=== PATIENT | female | born 1940 | race Caucasian/White ===

== ENCOUNTER 2021-12-12 22:08 | Inpatient (IN) | payer MEDICARE, MEDICAID, SELFPAY ==
--- NOTE | ~2021-12-12 | XR_ITS ---
MODIFIED ESOPHAGRAM HISTORY: Dysphagia. TECHNIQUE: Modified barium esophagram was performed on 12/16/2021. I administered fluoroscopy and perf ormed the exam with speech pathologist. Patient was seated for lateral fluoroscopic imaging for kristine stion of thin liquids, pudding, solids and quantified amounts, followed by thin liquids in uncontroll ed amounts. This was recorded on tape. A single fluoroscopic spot image was also recorded. The DAP fo r this procedure was 1.397 Gycm2. The amount of fluoroscopy time used during this procedure was 2.1 m inutes. FINDINGS: Oral stage: Adequate function. Pharyngeal stage: Trace vallecular residue and trace laryngeal penetration without aspiration.. Cervical/esophageal stage: Adequate function. IMPRESSION: Laryngeal penetration without aspiration. Please correlate with speech pathologist findi ngs and specific feeding recommendations. Reviewed, dictated and finalized at location A. IMPRESSION: Laryngeal penetration without aspiration. Please correlate with sp eech pathologist findings and specific feeding recommendations.
--- NOTE | ~2021-12-12 | XR_ITS ---
XR chest 1V portable 12/15/2021 14:55 Indication: Right middle lobe collapse Procedure: AP portable chest Comparison: 12/13/2021 Findings: There is opacification of the right mid thorax, possibly loculated effusion. Heart size nor mal. There is focal right perihilar consolidation which may represent atelectasis or pneumonia. No ac haley osseous abnormality. 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 Impression: 1: Focal right perihilar consolidation may represent atelectasis or pneumonia. 2: Peripheral opacity along the fissure on the right, suspicious for loculated effusion. Reviewed, dictated and finalized at location A. Impression: 1: Focal right perihilar consolidation may represent atelectasis or pneumonia. 2: Peripheral opacity along the fissure on the right, suspicious for loculated effusion.
--- NOTE | ~2021-12-12 | XR_ITS ---
EXAMINATION: XR chest 1V portable Exam Date/Time: 12/18/2021 14:30 CDT HISTORY: BRONCH S/P PROCEDURE Comparison: 12/17/2021. RESULT: Lines, tubes, and devices: None. Lungs and pleura: Slightly increased right middle lobe and bibasilar atelectasis. Cardiomediastinal silhouette: Stable. Other: No acute osseous or upper abdominal finding. IMPRESSION: Slightly increased right middle lobe and bibasilar atelectasis. No pneumothorax. Reviewed, dictated and finalized at location K. IMPRESSION: Slightly increased right middle lobe and bibasilar atelectasis. No pneumothorax .
--- NOTE | ~2021-12-12 | XR_ITS ---
EXAMINATION: XR chest 2V DATE: 12/17/2021 10:15 INDICATION: Right middle lobe collapse TECHNIQUE: frontal and lateral views of the chest were obtained. COMPARISON: 12/06 01/[address] dated 12/11/2021 FINDINGS: Persistent consolidation of the right middle lobe with appearance on prior CT most consistent with co mbination of atelectasis and pneumonia. Small bilateral pleural effusions at the posterior sulci. Rem ainder of the lungs are clear. No pulmonary edema or pneumothorax. The cardiomediastinal silhouette i s normal. Residual oral contrast material in the colon from prior modified swallow study. IMPRESSION: 1. Persistent right middle lobe consolidation, likely combination of atelectasis and pneumonia based on earlier CT imaging. Reviewed, dictated and finalized at location A. IMPRESSION: 1. Persistent right middle lobe consolidation, likely combination of atelectasi s and pneumonia based on earlier CT imaging.
--- NOTE | ~2021-12-12 | XR_ITS ---
EXAMINATION: XR chest 1V portable DATE: 12/13/2021 08:59 INDICATION: Aspiration pneumonia TECHNIQUE: frontal view of the chest was obtained. COMPARISON: None FINDINGS: Focal triangular airspace opacity in the right mid to lower lung zone with configuration suggesting c onsolidation either atelectasis or pneumonia in the lateral right middle lobe with sharply defined ce phalad margin along the minor fissure. No other airspace opacities, pulmonary edema, pleural effusion or pneumothorax. The cardiomediastinal silhouette is normal. Moderate to severe osteoarthritis at th e bilateral glenohumeral joints. IMPRESSION: 1. Focal consolidation in the lateral right middle lobe which could represent atelectasis or pneumoni a. Reviewed, dictated and finalized at location A. IMPRESSION: 1. Focal consolidation in the lateral right middle lobe which could represent a telectasis or pneumonia.
--- NOTE | ~2021-12-12 | CT_ITS ---
EXAMINATION: CT diagnostic chest wo con DATE: 12/17/2021 19:01 INDICATION: right middle lobe collapse TECHNIQUE: Computed tomography (CT) of the chest was performed with 100 mL Omnipaque-350 intravenous contrast. Automated exposure control and iterative reconstruction technique were employed. The dose-l ength product was 143.84 mGy-cm. COMPARISON: X-ray chest 12/17/2021, outside CT 12/11/2021. FINDINGS: CHEST: Thoracic aorta: Mild ectasia and arch calcification. Lung parenchyma and airways: Persistent atelectasis/consolidation in the right middle lobe. Interval development of air bronchograms. Severe narrowing of the proximal right middle lobe bronchus near its origin. Thoracic inlet, axillae and chest wall: No thyroid or soft tissue mass. No axillary lymphadenopathy. Mediastinum: No mass or lymphadenopathy. Scattered subcentimeter right hilar and mediastinal nodes. P ulmonary artery dilation as can be seen with pulmonary arterial hypertension. Patulous esophagus. Heart and pericardium: Normal heart size. No pericardial effusion. Mitral and aortic valve calcificat ion. Coronary artery calcifications: Moderate. Pleura: Small bilateral fluid collections with dependent atelectasis. Upper abdomen: Cholelithiasis Thoracic bones: No acute osseous finding in the chest. IMPRESSION: Persistent right middle lobe consolidation/atelectasis, with similar to slightly decreased volume and interval development of air bronchograms throughout. Right middle lobe bronchus narrowing near its o rigin. Small bilateral effusions. Overall these findings may reflect resolving right middle lobe pneu monia, although a small obstructing hilar mass or endobronchial mass is not excluded by this examinat ion. Reviewed, dictated and finalized at location K. IMPRESSION: Persistent right middle lobe consolidation/atelectasis, with similar to slightl y decreased volume and interval development of air bronchograms throughout. Rig ht middle lobe bronchus narrowing near its origin. Small bilateral effusions. O verall these findings may reflect resolving right middle lobe pneumonia, althou gh a small obstructing hilar mass or endobronchial mass is not excluded by this examination.
--- NOTE | 2021-12-12 20:05 | ADMGEN ---
This patient, Marlee Rocha, was admitted to Medical Room 340-01. Patient/family oriented to hospital policies and general routines including ID bracelet, bed and alarms, visiting hours, pain management, procedures, bathroom and other care routines, personal items, smoking policy, room service/diet, and visiting hours. Information on how to activate the Rapid Response Team has been discussed. Patient/Family are encouraged to report perceived risks to care and to ask questions if they do not understand what they are told or what they should do.
[2021-12-12 20:46] VITALS: BMI 23.8
[2021-12-12 20:50] VITALS: BP 130/68; PULSE 62; RESP 22; TEMP 36.8; O2SAT 95
[2021-12-12 23:06] LABS: Basophils Percent Auto 0.2 % (0.2-1.2); Eosinophils Percent Auto 0.2 % (0-4.4); Hematocrit 38.6 % (37.0-47.0); Hemoglobin 12.2 g/dL (12.0-15.0); Immature Granulocyte Absolute 0.13 K/mm3 (0.00-0.031); Immature Granulocyte Percent A 1.4 % (0-0.5); Lymphocytes Absolute Auto 0.94 K/mm3 (0.9-3.2); Lymphocytes Percent Auto 10.5 % (18.3-44.2); Mean Corpuscular HGB Conc 31.6 g/dl (32-36); Mean Corpuscular Hemoglobin 30.7 pg (26-34); Mean Platelet Volume 8.8 fl (7.4-10.4); Monocytes Absolute Auto 0.4 K/mm3 (0.1-0.6); Monocytes Percent Auto 4.6 % (2.6-8.5); Neutrophils Absolute Auto 7.5 K/mm3 (1.3-6.7); Neutrophils Percent Auto 83.1 % (45.5-73.1); Platelet Count Result 335 k/mm3 (150-375); Red Blood Count 3.98 M/mm3 (4.2-5.4); Red Cell Distribution Width 14.7 % (11.5-14.5)
[2021-12-12 23:13] LABS: Alanine Aminotransferase 16 U/L (6-35); Albumin Level 2.8 g/dL (3.5-5.1); Alkaline Phosphatase 102 U/L (38-126); Anion Gap 11 mmol/L (8-16); Aspartate Amino Transferase 37 U/L (14-36); Bilirubin,Total 0.4 mg/dL (0.2-1.3); Blood Urea Nitrogen 18 mg/dL (7-17); Calcium 8.8 mg/dL (8.4-10.2); Carbon Dioxide 23 mmol/L (22-30); Chloride 107 mmol/L (98-107); Estimated CRCL calculation 54 ml/min; Estimated Glomerular Filt Rate > 60; Glucose 94 mg/dL (65-110); Magnesium 1.5 mg/dL (1.6-2.3); Phosphorus 2.7 mg/dL (2.5-4.5); Sodium 141 mmol/L (137-145)
[2021-12-12] MEDS: DEXTROSE 5%/0.45% SOD CHL 1,000 ML 75 ML IV CONT (23:40)
[2021-12-13] VITALS (7 sets, daily range): BP systolic 126–131; BP diastolic 68–80; PULSE 62–85; RESP 18–22; TEMP 36.4–36.8; O2SAT 95–100; BMI 23.8
--- NOTE | 2021-12-13 00:35 | PM.IMHP ---
H&P: HPI History of Present Illness Date/Time: 12/13/21 00:35 Chief Complaint: dysphagia Narrative: This is an 81-year-old female with past medical history significant for gastroesophageal reflux disease, type 2 diabetes mellitus, patient comes as a direct transfer from outside hospital after she was checked in the for shortness of breath patient has dysphagia as well and has not been able to eat for several days has had weight loss as well. Patient denies any fevers, chills, rigors, has have some shortness of breath, cough nonproductive, no hematemesis no melena no bright red blood per rectum on no changes in her stool character. PRELIMINARY WORKUP WAS SIGNIFICANT FOR CHEST X-RAY with focal consolidation in the lateral right middle lobe which could represent atelectasis or pneumonia. Patient is been admitted for further evaluation management and treatment. Review of Systems Review of Systems: DYSPHAGIA, UNABLE TO KEEP ANYTHING DOWN REGURGITATION, WEIGHT LOSS, SHORTNESS OF BREATH, COUGH. Constitutional: Constitutional: Denies chills, Denies fever(s), Denies night sweats and Reports weight loss Eyes: Eyes: Denies change in vision ENT: Reports dysphagia, Denies vertigo, Denies dizziness, Denies odynophagia and Denies sore throat Cardiovascular: Cardiovascular: Denies chest pain, Denies syncope, Denies irregular heart rhythm, Denies lightheadedness, Denies palpitations and Denies dyspnea on exertion Respiratory: Respiratory: Denies change in phlegm color, Denies chest congestion, Reports cough, Denies excessive phlegm production, Reports dyspnea and Denies wheezing Gastrointestinal: Gastrointestinal: Denies abdominal pain, Denies dyspepsia, Denies heartburn, Denies nausea and Denies vomiting Genitourinary: Genitourinary: Denies dysuria Musculoskeletal: Musculoskeletal: Denies myalgias, Denies arthralgias and Denies joint swelling Integumentary/Breasts: Skin/Breast: Denies rash Neurologic: Denies vertigo, Denies dizziness, Denies focal weakness and Denies Sensory deficit (Neuro) Psychiatric: Psychiatric: Reports no additional psychiatric complaints and Reports as per HPI Endocrine: Endocrine: Denies cold intolerance, Denies fatigue, Denies flushing, Denies heat intolerance, Denies polyphagia, Denies polydipsia and Denies palpitations Hematologic/Lymphatic: Hematologic/Lymphatic: Reports no additional hematologic/lymphatic complaints and Reports as per [facility] Family History Family History (Updated 12/12/21 @ 20:51 by Giuseppe Muñiz RN) Father Diabetes mellitus Mother Diabetes mellitus Sibling Dementia Other Heart disease Social History Social History Smoking status: Never smoker Alcohol intake: never Substance use: never Spiritual care concerns: No Meds Home Medications and Allergies Home Medications Medication Instructions Recorded Confirmed Type ezetimibe 10 mg tablet (Zetia) 10 mg PO DAILY 12/12/21 12/12/21 History lisinopril 10 mg tablet (Zestril) 10 mg PO DAILY 12/12/21 12/12/21 History metformin 500 mg tablet 500 mg PO DAILY 12/12/21 12/12/21 History omeprazole 40 mg capsule,delayed 40 mg PO DAILY 12/12/21 12/12/21 History release sertraline 50 mg tablet (Zoloft) 50 mg PO DAILY 12/12/21 12/12/21 History timolol maleate 0.5 % eye drops See Rx Instructions .Route .COMPLEX 12/12/21 12/12/21 History (Timoptic) tramadol 50 mg tablet (Ultram) 50 mg PO TID 12/12/21 12/12/21 History Allergies Allergy/AdvReac Type Severity Reaction Status Date / Time Penicillins Allergy Hives Verified 12/12/21 20:14 Sulfa (Sulfonamide Allergy Hives Verified 12/12/21 20:14 Antibiotics) Vital Signs Vital Signs - 24 hr 12/12/21 20:50 12/12/21 23:01 12/13/21 00:00 Temperature 98.2 F 98.2 F Pulse Rate 62 62 Respiratory Rate 22 H 22 H Blood Pressure 130/68 130/68 Pulse Oximetry 95 95 Oxygen Delivery Room Air Exam Narrative: patient is laying in bed Const: Gen
[2021-12-13] MEDS: MAGNESIUM SULF 2 GM/WATER 50ML 2 GM/50 ML BAG IVPB (04:04)
[2021-12-13 06:35] LABS: Glucose Point of Care 109 mg/dl (65-105)
--- NOTE | 2021-12-13 08:35 | PM.IMPN ---
Progress Note: A&P Assessment and Plan (1) Dysphagia: Code(s): R13.10 - Dysphagia, unspecified Status: Acute Assessment and Plan: Monitor vital signs, I and O's, check stool output, neuro status and patient is a fall risk Monitor serum electrolytes and CBC Gentle IV fluid resuscitation Consult gastroenterology for further evaluation, appreciate assistance and recommendation Diet:NPO (2) Aspiration pneumonia: Code(s): J69.0 - Pneumonitis due to inhalation of food and vomit Status: Acute Assessment and Plan: Monitor vital signs, I&Os, neuro status and patient is a fall risk Follow WBC, serum electrolytes, temperature curves and cultures Send sputum cultures Obtain Pneumococcal antigen urine and legionella pneumophila Ag Ur Oxygen via NC; wean as tolerated. Keep SpO2 greater than 88% Gentle IV fluid resuscitation Ceftriaxone 2 gram IV q24H and Azithromycin 500mg IV q24H DuoNeb q6H and Albuterol q2H PRN P.r.n. Tylenol, Zofran, and melatonin (3) Weight loss: Code(s): R63.4 - Abnormal weight loss Status: Acute Assessment and Plan: Consult registered dietitian Albumin 2.8 (4) Hypokalemia: Code(s): E87.6 - Hypokalemia Status: Acute Assessment and Plan: Replace serum electrolytes (5) Hypomagnesemia: Code(s): E83.42 - Hypomagnesemia Status: Acute Assessment and Plan: Replaced serum electrolytes Subjective Date/time seen: 12/13/21 08:35 Patient is poor historian. Chart reviewed from [facility]. It appears the patient has been falling multiple times for the last 3-4 days. Denies any loss of consciousness. Patient does appears slightly confused when attempting to discuss plan of care. Reports from the [facility] facility suggested possible pneumonia and she was treated with Rocephin and azithromycin. Will continue these medications during hospitalization. Repeat chest x-ray and labs. Consult physical therapy, occupational therapy and speech therapy further evaluation. Patient remains on room air and is receiving IV fluids. Reportedly the patient has a history of penicillin allergy, she did receive Rocephin at the [facility] facility therefore this medication will be continued. Review of Systems Review of Systems: All systems reviewed & are unremarkable except as noted in HPI and below Exam Narrative: General: No acute distress. Lethargic Mental Status: Awake, alert and disoriented to person, place, and time with clear speech. Skin: Skin in warm, dry and intact without rashes or lesions. Head: Normocephalic and atraumatic. Eyes: Conjunctivae are clear without exudates or hemorrhage. Sclera is non-icteric. EOM are intact, PERRLA. Ears: The external ear and canal are non-tender and without swelling or discharge. Nose: Nasal mucosa is pink and moist. Septum midline. Nares patent bilaterally. Throat: Oral mucosa pink and moist with good dentition. Tongue midline. Neck: The neck supple without adenopathy. Trachea midline. No JVD. Cardiac: S1 and S2 regular rate and rhythm. No murmurs, gallops, or rubs auscultated. Respiratory: Chest wall symmetric, nontender and without deformity or trauma. Respirations even and unlabored. Lung sounds are diminished to auscultation in all lobes bilaterally without wheezes, rhonchi, or rales. Abdominal: Abdomen soft, round and non-tender to palpation. Bowel sounds present and normoactive in all 4 quadrants. Spine: Neck and back with grossly normal curvature, no deformity in appearance or signs of trauma. Extremities: Upper and lower extremities atraumatic without tenderness or deformity. Full range of motion and muscle strength 3+/5 to all extremities bilaterally. Neurological: Full and symmetric motor and light touch sensation bilaterally. Cranial nerves II-XII grossly intact. Objective Data Vital Signs Vital Signs: Vital Signs - 24 hr 12/12/21 20:50 12/12/21 23:01 12/13/21 00:00 Temp
[2021-12-13 08:56] LABS: Appearance Urine Clear (Clear); Bilirubin Urine 1+ (Negative); Color Urine Yellow (Yellow); Glucose Urine UA Negative (Negative); Ketones Urine 2+ mg/dL (Negative); Leukocyte Esterase Ur Trace LEU/UL (Negative); Nitrate Urine Negative (Negative); Protein Urine Negative (Negative); Urobilinogen Urine 0.2 mg/dL (<2.0)
[2021-12-13 08:59] LABS: Add Urine Microscopic? YES; Blood Urine Trace-Intact (Negative)
[2021-12-13 09:00] LABS: Bacteria Urine Trace /hpf; Mucus Urine Rare /lpf; Squamous Epithelial Cell Urine Rare /hpf (Few)
[2021-12-13] MEDS: PANTOPRAZOLE SODIUM IV 40 MG VIAL IV PUSH ×2 (09:35→20:56)
[2021-12-13] MEDS: TIMOLOL MALEATE 0.5% OP SOLN 5 ML BOTTLE 1 DROP EACH EYE (09:35)
[2021-12-13] MEDS: ENOXAPARIN 40 MG/0.4 ML SYRINGE SUB-Q (09:36)
[2021-12-13] MEDS: POTASSIUM CHLORIDE INJ 40 MEQ in SODIUM CHLORIDE 0.9% IV 500 ML 130 MEQ IVPB (09:44)
--- NOTE | 2021-12-13 13:39 | PCSTNOTE ---
Attempted bedside swallowing evaluation. Patient is currently NPO awaiting further tests. At this time unable to assess swallowing until patient is able to have trials of food and liquid consistencies necessary to evaluate swallowing abilities bedside.
[2021-12-13] MEDS: IPRATROPIUM BR 0.02% INH SOLN 0.5 MG/2.5 ML VIAL INHALATION ×2 (13:50→20:25)
[2021-12-13 21:09] LABS: Glucose Point of Care 117 mg/dl (65-105)
[2021-12-14] VITALS (11 sets, daily range): BP systolic 113–132; BP diastolic 65–81; PULSE 52–84; RESP 18–21; TEMP 36.1–36.6; O2SAT 99–100
[2021-12-14] MEDS: IPRATROPIUM BR 0.02% INH SOLN 0.5 MG/2.5 ML VIAL INHALATION ×4 (01:59→21:00)
[2021-12-14] MEDS: DEXTROSE 5%/0.45% SOD CHL 1,000 ML 75 ML IV CONT ×3 (06:04→20:38)
[2021-12-14 06:23] LABS: Basophils Percent Auto 0.2 % (0.2-1.2); Eosinophils Percent Auto 0.6 % (0-4.4); Hematocrit 35.4 % (37.0-47.0); Hemoglobin 11.4 g/dL (12.0-15.0); Immature Granulocyte Absolute 0.12 K/mm3 (0.00-0.031); Immature Granulocyte Percent A 1.9 % (0-0.5); Lymphocytes Absolute Auto 0.79 K/mm3 (0.9-3.2); Lymphocytes Percent Auto 12.5 % (18.3-44.2); Mean Corpuscular HGB Conc 32.2 g/dl (32-36); Mean Corpuscular Hemoglobin 30.8 pg (26-34); Mean Corpuscular Volume 95.7 fl (80-100); Mean Platelet Volume 8.6 fl (7.4-10.4); Monocytes Absolute Auto 0.4 K/mm3 (0.1-0.6); Monocytes Percent Auto 5.7 % (2.6-8.5); Neutrophils Percent Auto 79.1 % (45.5-73.1); Platelet Count Result 252 k/mm3 (150-375); Red Cell Distribution Width 14.6 % (11.5-14.5); White Blood Count 6.3 K/mm3 (4.5-10.0)
[2021-12-14 06:24] LABS: Alanine Aminotransferase 15 U/L (6-35); Albumin Level 2.4 g/dL (3.5-5.1); Alkaline Phosphatase 75 U/L (38-126); Anion Gap 8 mmol/L (8-16); Aspartate Amino Transferase 25 U/L (14-36); Bilirubin,Total 0.2 mg/dL (0.2-1.3); Blood Urea Nitrogen 13 mg/dL (7-17); Calcium 8.5 mg/dL (8.4-10.2); Carbon Dioxide 23 mmol/L (22-30); Chloride 108 mmol/L (98-107); Estimated CRCL calculation 64 ml/min; Estimated Glomerular Filt Rate > 60; Glucose 141 mg/dL (65-110); Potassium 3.2 mmol/L (3.4-5.0); Sodium 139 mmol/L (137-145)
--- NOTE | 2021-12-14 07:07 | PM.IMPN ---
Progress Note: A&P Assessment and Plan (1) Dysphagia: Code(s): R13.10 - Dysphagia, unspecified Status: Acute Assessment and Plan: Monitor vital signs, I and O's, check stool output, neuro status and patient is a fall risk Monitor serum electrolytes and CBC Gentle IV fluid resuscitation Consult gastroenterology for further evaluation, appreciate assistance and recommendation Diet:NPO until evaluated by speech therapy and gastroenterology (2) Aspiration pneumonia: Code(s): J69.0 - Pneumonitis due to inhalation of food and vomit Status: Acute Assessment and Plan: Monitor vital signs, I&Os, neuro status and patient is a fall risk Follow WBC, serum electrolytes, temperature curves and cultures Send sputum cultures Obtain Pneumococcal antigen urine and legionella pneumophila Ag Ur Oxygen via NC; wean as tolerated. Keep SpO2 greater than 88% Gentle IV fluid resuscitation Ceftriaxone 2 gram IV q24H and Azithromycin 500mg IV q24H DuoNeb q6H and Albuterol q2H PRN P.r.n. Tylenol, Zofran, and melatonin WBC improved (3) Weight loss: Code(s): R63.4 - Abnormal weight loss Status: Acute Assessment and Plan: Consult registered dietitian Albumin 2.8 (4) Hypokalemia: Code(s): E87.6 - Hypokalemia Status: Acute Assessment and Plan: Replace serum electrolytes (5) Hypomagnesemia: Code(s): E83.42 - Hypomagnesemia Status: Acute Assessment and Plan: Replaced serum electrolytes Subjective Date/time seen: 12/14/21 07:07 Patient appears to be improved since yesterday. She is more alert and talkative this morning. Although drowsy. Patient did report she denies sleep while in the hospital. Patient continues on IV antibiotics. Pending GI consultation and speech therapy. Patient reports she does have some difficulties with swallowing. patient is currently NPO until speech therapy evaluation. Review of Systems Review of Systems: All systems reviewed & are unremarkable except as noted in HPI and below Exam Narrative: General: No acute distress. Drowsy Mental Status: Awake, alert and oriented to person, place, situation, and time with clear speech. Skin: Skin in warm, dry and intact without rashes or lesions. Head: Normocephalic and atraumatic. Eyes: Conjunctivae are clear without exudates or hemorrhage. Sclera is non-icteric. EOM are intact, PERRLA. Ears: The external ear and canal are non-tender and without swelling or discharge. Nose: Nasal mucosa is pink and moist. Septum midline. Nares patent bilaterally. Throat: Oral mucosa pink and moist with good dentition. Tongue midline. Neck: The neck supple without adenopathy. Trachea midline. No JVD. Cardiac: S1 and S2 regular rate and rhythm. No murmurs, gallops, or rubs auscultated. Respiratory: Chest wall symmetric, nontender and without deformity or trauma. Respirations even and unlabored. Lung sounds are diminished to auscultation in all lobes bilaterally without wheezes, rhonchi, or rales. Abdominal: Abdomen soft, round and non-tender to palpation. Bowel sounds present and normoactive in all 4 quadrants. Spine: Neck and back with grossly normal curvature, no deformity in appearance or signs of trauma. Extremities: Upper and lower extremities atraumatic without tenderness or deformity. Full range of motion and muscle strength 4+/5 to all extremities bilaterally. Neurological: Full and symmetric motor and light touch sensation bilaterally. Cranial nerves II-XII grossly intact. Objective Data Vital Signs Vital Signs: Vital Signs - 24 hr 12/13/21 08:00 12/13/21 13:50 12/13/21 14:00 Temperature Pulse Rate 62 64 Respiratory Rate 18 18 Blood Pressure Pulse Oximetry Oxygen Delivery Room Air 12/13/21 14:00 12/13/21 20:25 12/13/21 20:35 Temperature 97.5 F L Pulse Rate 74 66 62 Respiratory Rate 18 18 18 Blood Pressure 131/70 Pulse Oximetry 100 Oxygen Delivery
[2021-12-14] MEDS: ALBUTEROL SULFATE NEB 2.5 MG/3 ML INH INHALATION ×2 (08:08→21:00)
[2021-12-14] MEDS: PANTOPRAZOLE SODIUM IV 40 MG VIAL IV PUSH ×2 (08:46→20:38)
[2021-12-14] MEDS: ENOXAPARIN 40 MG/0.4 ML SYRINGE SUB-Q (08:46)
[2021-12-14] MEDS: TIMOLOL MALEATE 0.5% OP SOLN 5 ML BOTTLE 1 DROP EACH EYE (08:46)
--- NOTE | 2021-12-14 11:08 | PC.NURSE ---
pt currently NPO awaiting a bedside swallow study. Per hospitalistRocio, hold off on morning medications until after the beside swallow.
[2021-12-14] MEDS: POTASSIUM CHLORIDE 20 MEQ TABLET 40 MEQ PO (12:10)
[2021-12-14] MEDS: SERTRALINE HCL 50 MG TABLET PO (12:11)
[2021-12-14] MEDS: lisinopriL 10 MG TABLET PO (12:11)
[2021-12-14] MEDS: traMADol HCL (*CRX) 50 MG TABLET PO ×2 (12:13→17:26)
--- NOTE | 2021-12-14 13:02 | PCSTNOTE ---
Please refer to the Bedside Swallow Evaluation in the EMR. Please note, silent aspiration cannot be ruled out at bedside.
--- NOTE | 2021-12-14 16:10 | WPDGICN ---
Assessment and Plan Assessment and plan (1) Dysphagia: Code(s): R13.10 - Dysphagia, unspecified Status: Acute Assessment and Plan: will proceed with egd to check if ring/stricture or even malignancy. Family thinks that esophagus has been dilated in the past more recommendations after scope (2) Aspiration pneumonia: Code(s): J69.0 - Pneumonitis due to inhalation of food and vomit Status: Acute Assessment and Plan: on treatment (3) Weight loss: Code(s): R63.4 - Abnormal weight loss Status: Acute Assessment and Plan: with poor oral intake she never had colonoscopy but family prefers to wait before consider any further work up (4) Malnutrition: Code(s): E46 - Unspecified protein-calorie malnutrition Status: Acute Assessment and Plan: because ongoing dysphagia (5) Hypokalemia: Code(s): E87.6 - Hypokalemia Status: Acute Assessment and Plan: treated GI Consult Note Consult date/time: 12/14/21 16:10 Reason for consult: dysphagia, weight loss HPI: Marlee Rocha is a 81 year old female with past medical history significant for gastroesophageal reflux disease, type 2 diabetes mellitus and ongoing dysphagia for few years where patient is choking after eating, family noted that last few months she has been throwing up after eating with decreased oral intake. Son and said that did not want to come to hospital but recently developed also shortness of breath patient and dysphagia worsened. She had CHEST X-RAY that showed focal consolidation in the lateral right middle lobe which could represent atelectasis or pneumonia. She also lost more than 40 lb last few months, never had colonoscopy. She had EGD years ago and thinks that required dilation. Started on antiobiotics and iv protonix. Review of Systems Review of Systems: DYSPHAGIA, UNABLE TO KEEP ANYTHING DOWN REGURGITATION, WEIGHT LOSS, SHORTNESS OF BREATH, COUGH. Constitutional: Constitutional: Denies chills, Denies fever(s), Denies night sweats and Reports weight loss Eyes: Eyes: Denies change in vision ENT: Reports dysphagia, Denies vertigo, Denies dizziness, Denies odynophagia and Denies sore throat Cardiovascular: Cardiovascular: Denies chest pain, Denies syncope, Denies irregular heart rhythm, Denies lightheadedness, Denies palpitations and Denies dyspnea on exertion Respiratory: Respiratory: Denies change in phlegm color, Denies chest congestion, Reports cough, Denies excessive phlegm production, Reports dyspnea and Denies wheezing Gastrointestinal: Gastrointestinal: Denies abdominal pain, Denies dyspepsia, Denies heartburn, Denies nausea and Denies vomiting Genitourinary: Genitourinary: Denies dysuria Musculoskeletal: Musculoskeletal: Denies myalgias, Denies arthralgias and Denies joint swelling Integumentary/Breasts: Skin/Breast: Denies rash Neurologic: Denies vertigo, Denies dizziness, Denies focal weakness and Denies Sensory deficit (Neuro) Psychiatric: Psychiatric: Reports no additional psychiatric complaints and Reports as per HPI Endocrine: Endocrine: Denies cold intolerance, Denies fatigue, Denies flushing, Denies heat intolerance, Denies polyphagia, Denies polydipsia and Denies palpitations Hematologic/Lymphatic: Hematologic/Lymphatic: Reports no additional hematologic/lymphatic complaints and Reports as per HPI PMFSH Past Medical History Medical History (Updated 12/14/21 @ 16:17 by Avery Mayorga MD) Malnutrition Family History Family History (Updated 12/12/21 @ 20:51 by Giuseppe Muñiz RN) Father Diabetes mellitus Mother Diabetes mellitus Sibling Dementia Other Heart disease Social History Social History Smoking status: Never smoker Alcohol intake: never Substance use: never Spiritual care concerns: No Meds Home Medications and Allergies Home Medications Medication Instructions Recorded Confir
[2021-12-15] VITALS (14 sets, daily range): BP systolic 97–137; BP diastolic 63–76; PULSE 60–84; RESP 18–21; TEMP 36.1–36.8; O2SAT 94–100
[2021-12-15 05:55] LABS: Basophils Percent Auto 0.2 % (0.2-1.2); Eosinophils Absolute Auto 0.1 K/mm3 (0-0.3); Eosinophils Percent Auto 1.3 % (0-4.4); Hematocrit 34.7 % (37.0-47.0); Hemoglobin 10.8 g/dL (12.0-15.0); Immature Granulocyte Absolute 0.08 K/mm3 (0.00-0.031); Immature Granulocyte Percent A 1.5 % (0-0.5); Lymphocytes Absolute Auto 0.88 K/mm3 (0.9-3.2); Lymphocytes Percent Auto 16.1 % (18.3-44.2); Mean Corpuscular HGB Conc 31.1 g/dl (32-36); Mean Corpuscular Hemoglobin 30.3 pg (26-34); Mean Corpuscular Volume 97.5 fl (80-100); Mean Platelet Volume 8.9 fl (7.4-10.4); Monocytes Absolute Auto 0.3 K/mm3 (0.1-0.6); Neutrophils Absolute Auto 4.1 K/mm3 (1.3-6.7); Neutrophils Percent Auto 74.9 % (45.5-73.1); Platelet Count Result 218 k/mm3 (150-375); Red Blood Count 3.56 M/mm3 (4.2-5.4); Red Cell Distribution Width 14.6 % (11.5-14.5); White Blood Count 5.5 K/mm3 (4.5-10.0)
[2021-12-15 06:06] LABS: Alanine Aminotransferase 14 U/L (6-35); Albumin Level 2.1 g/dL (3.5-5.1); Alkaline Phosphatase 57 U/L (38-126); Anion Gap 5 mmol/L (8-16); Aspartate Amino Transferase 21 U/L (14-36); Bilirubin,Total 0.3 mg/dL (0.2-1.3); Blood Urea Nitrogen 10 mg/dL (7-17); Calcium 7.9 mg/dL (8.4-10.2); Carbon Dioxide 25 mmol/L (22-30); Chloride 105 mmol/L (98-107); Estimated CRCL calculation 64 ml/min; Estimated Glomerular Filt Rate > 60; Glucose 110 mg/dL (65-110); Potassium 3.4 mmol/L (3.4-5.0); Sodium 135 mmol/L (137-145)
--- NOTE | 2021-12-15 06:55 | PM.IMPN ---
Progress Note: A&P Assessment and Plan (1) Dysphagia: Code(s): R13.10 - Dysphagia, unspecified Status: Acute Assessment and Plan: Monitor vital signs, I and O's, check stool output, neuro status and patient is a fall risk Monitor serum electrolytes and CBC Gentle IV fluid resuscitation Consult gastroenterology for further evaluation, appreciate assistance and recommendation EGD to be performed 12/15/2021, patient has not had a prior colonoscopy. Patient really has had an EGD prior in the past with esophageal dilatation. Diet:NPO until evaluated by speech therapy and gastroenterology--- Defer to Gastroenterology (2) Aspiration pneumonia: Code(s): J69.0 - Pneumonitis due to inhalation of food and vomit Status: Acute Assessment and Plan: Monitor vital signs, I&Os, neuro status and patient is a fall risk Follow WBC, serum electrolytes, temperature curves and cultures Send sputum cultures Obtain Pneumococcal antigen urine and legionella pneumophila Ag Ur Oxygen via NC; wean as tolerated. Keep SpO2 greater than 88% Gentle IV fluid resuscitation Ceftriaxone 2 gram IV q24H and Azithromycin 500mg IV q24H DuoNeb q6H and Albuterol q2H PRN P.r.n. Tylenol, Zofran, and melatonin WBC WNL Consult pulmonary possible candidacy for bronchoscopy further evaluation of possible obstruction due to aspiration my appreciate assistance and recommendations (3) Weight loss: Code(s): R63.4 - Abnormal weight loss Status: Acute Assessment and Plan: Consult registered dietitian Albumin 2.8 (4) Hypokalemia: Code(s): E87.6 - Hypokalemia Status: Acute Assessment and Plan: Replace serum electrolytes (5) Hypomagnesemia: Code(s): E83.42 - Hypomagnesemia Status: Acute Assessment and Plan: Replaced serum electrolytes (6) Diabetes: Code(s): E11.9 - Type 2 diabetes mellitus without complications Status: Acute Assessment and Plan: Insulin Lispro sliding scale, Accu-checks qAc and HS and Hold oral hypoglycemics (7) Abnormal finding on imaging: Code(s): R93.89 - Abnormal findings on diagnostic imaging of other specified body structures Status: Acute Assessment and Plan: Outlying facility did not send original CT report. Requested off to [facility] [place]. Report obtained. Impression gestation total lobe collapse with obstruction of the right middle lobe bronchi is with irregular cystic and stent with a consolidated right middle lobe and could potentially reflect postobstructive pneumonia with questionable ligament see? Benign bronchial obstruction related to mucous [place] is possible therefore a consult to Pulmonary has been created Patient may have had aspiration she developed the possible obstruction. patient is at risk for aspiration due to the patulous esophagus Gallbladder was also distended secondary to Hema filling with gallstones, no definite features of acute cholecystitis. Patient denied any acute abdominal in Nonobstructive left nephrolithiasis Given the dunn of the urinary bladder, obtain urinalysis evaluate for possible emphysematous cystitis. Patient does not have any symptoms of UTI although she is currently being treated with Rocephin. Subjective Date/time seen: 12/15/21 06:55 patient is sitting upright in her bed. She is more awake and alert and oriented x4. Patient was evaluated by Gastroenterology and Pulmonary today. Pulmonary plans to obtain a CT of the chest on Saturday and discussed possible bronchoscopy on Saturday if her lung does not appear to re-expand. Patient continues on IV Rocephin and azithromycin with no leukocytosis. Patient was placed on albuterol and ipratropium and started on Cornet therapy. EGD was performed on 12/15/2021-C operative note. No acute concerns reported by RN during the night. Review of Systems Review of Systems: All systems reviewed & are unremarkable except as noted in
[2021-12-15] MEDS: IPRATROPIUM BR 0.02% INH SOLN 0.5 MG/2.5 ML VIAL INHALATION ×3 (08:10→21:02)
[2021-12-15] MEDS: ALBUTEROL SULFATE NEB 2.5 MG/3 ML INH INHALATION ×2 (08:10→21:02)
[2021-12-15] MEDS: TIMOLOL MALEATE 0.5% OP SOLN 5 ML BOTTLE 1 DROP EACH EYE (08:43)
[2021-12-15] MEDS: ENOXAPARIN 40 MG/0.4 ML SYRINGE SUB-Q (08:43)
[2021-12-15] MEDS: PANTOPRAZOLE SODIUM IV 40 MG VIAL IV PUSH ×2 (08:43→20:47)
--- NOTE | 2021-12-15 09:37 | PC.NURSE ---
Agricultural Plow Operator spoke with family at bedside. Family is requesting a meeting with the hospitalist regarding the patients plan of care. Agricultural Plow Operator educated family on the plan of care and family is not completely satisfied and would still like to meet with hospitalist. Agricultural Plow Operator contacted patients hospitalist Dr Vega and left a voicemail.
--- NOTE | 2021-12-15 09:39 | PC.NURSE ---
Patient is NPO for EGD today, keno writer/runner held morning PO medications
--- NOTE | 2021-12-15 10:36 | PC.NURSE ---
Spoke with Dr. Vega regarding patient's visitors concerns. Paper Products Machine Operator found a disc from [facility] in the patient's chart and sent it down to the radiology department to be uploaded. Relayed this information to Dr. Vega and gave her [facility] phone number to contact them as well.
[2021-12-15] MEDS: LACTATED RINGERS 1,000 ML 150 ML IV CONT (11:40)
--- NOTE | 2021-12-15 11:56 | WPDANESEPPF ---
Anes - Initial Pre Proc Eval Procedure: Operation Date: 12/15/21 14:30 Proposed Procedures p Esophagogastroduodenoscopy - Avery Mayorga MD Date/Time: 12/15/21 11:56 Surgeon: Vickie Romero MD Pre Op Diagnosis: Pneumonia Patient Data Age: 81 Gender: F Height: 1.63 m Weight: 63 kg Last Vital Signs Temp 36.4 C L 12/15/21 11:40 Pulse 60 12/15/21 11:40 Resp 20 12/15/21 11:40 BP 131/65 12/15/21 11:40 Pulse Ox 99 12/15/21 11:40 O2 Del Method Room Air 12/15/21 11:40 Allergies Allergy/AdvReac Type Severity Reaction Status Date / Time Penicillins Allergy Hives Verified 12/12/21 20:14 Sulfa (Sulfonamide Allergy Hives Verified 12/12/21 20:14 Antibiotics) Home Medications Medication Instructions Recorded Confirmed Type ezetimibe 10 mg tablet (Zetia) 10 mg PO DAILY 12/12/21 12/12/21 History lisinopril 10 mg tablet (Zestril) 10 mg PO DAILY 12/12/21 12/12/21 History metformin 500 mg tablet 500 mg PO DAILY 12/12/21 12/12/21 History omeprazole 40 mg capsule,delayed 40 mg PO DAILY 12/12/21 12/12/21 History release sertraline 50 mg tablet (Zoloft) 50 mg PO DAILY 12/12/21 12/12/21 History timolol maleate 0.5 % eye drops See Rx Instructions .Route .COMPLEX 12/12/21 12/12/21 History (Timoptic) tramadol 50 mg tablet (Ultram) 50 mg PO TID 12/12/21 12/12/21 History Laboratory Tests 12/15/21 12/15/21 05:26 05:26 WBC 5.5 K/mm3 K/mm3 (4.5-10.0) RBC 3.56 M/mm3 L M/mm3 (4.2-5.4) Hgb 10.8 g/dL L g/dL (12.0-15.0) Hct 34.7 % L % (37.0-47.0) MCV 97.5 fl fl (80-100) MCH 30.3 pg pg (26-34) MCHC 31.1 g/dl L g/dl (32-36) RDW 14.6 % H % (11.5-14.5) Plt Count 218 k/mm3 k/mm3 (150-375) MPV 8.9 fl fl (7.4-10.4) Immature Gran % (Auto) 1.5 % H % (0-0.5) Neut % (Auto) 74.9 % H % (45.5-73.1) Lymph % (Auto) 16.1 % L % (18.3-44.2) [place] % (Auto) 6.0 % % (2.6-8.5) Eos % (Auto) 1.3 % % (0-4.4) Baso % (Auto) 0.2 % % (0.2-1.2) Lymph # (Auto) 0.88 K/mm3 L K/mm3 (0.9-3.2) [place] # (Auto) 0.3 K/mm3 K/mm3 (0.1-0.6) Eos # (Auto) 0.1 K/mm3 K/mm3 (0-0.3) Baso # (Auto) 0.0 K/mm3 K/mm3 (0.0-0.1) Abs Immat Gran (auto) 0.08 K/mm3 H K/mm3 (0.00-0.031) Absolute Neuts (auto) 4.1 K/mm3 K/mm3 (1.3-6.7) Absolute Nucleated RBC 0.0 K/mm3 K/mm3 (0.0-0.012) Nucleated RBC % 0.0 % % (0.0-0.2) Sodium 135 mmol/L L mmol/L (137-145) Potassium 3.4 mmol/L mmol/L (3.4-5.0) Chloride 105 mmol/L mmol/L (98-107) Carbon Dioxide 25 mmol/L mmol/L (22-30) Anion Gap 5 mmol/L L mmol/L (8-16) BUN 10 mg/dL mg/dL (7-17) Creatinine 0.50 mg/dL L mg/dL (0.7-1.0) Estim Creat Clear Calc 64 ml/min ml/min Estimated GFR > 60 (59 - ) Glucose 110 mg/dL mg/dL (65-110) Calcium 7.9 mg/dL L mg/dL (8.4-10.2) Total Bilirubin 0.3 mg/dL mg/dL (0.2-1.3) AST 21 U/L U/L (14-36) ALT 14 U/L U/L (6-35) Alkaline Phosphatase 57 U/L U/L (38-126) Total Protein 5.0 g/dL L g/dL (6.3-8.2) Albumin 2.1 g/dL L g/dL (3.5-5.1) Patient hx anesthesia problems: none Family hx anesthesia problems: none Results Review: All pre-operative results and documents have been reviewed as part of the pre-operative evaluation. [facility] Past Medical History Medical History (Updated 12/15/21 @ 11:58 by Marlon Ahumada MD) Chronic GERD Diabetes DVT (deep venous thrombosis) HTN (hypertension) Malnutrition Osteoarthritis Family History Family History (Updated 12/12/21 @ 20:51 by Giuseppe Muñiz RN) Father Diabetes mellitus Mother Diabetes mellitus Sibling Dementia Other Heart disease Social History Social History Smoking status: Never smoker Alcohol intake: never Substance use: never Spirit
--- NOTE | 2021-12-15 13:35 | PCNFU ---
Nutrition Follow-Up Complete: Increased protein needs as related to would as evidenced by stage II PU reported. Goal: Adequate Intake of at least 75% of meals/supplements Patient is progressing towards goal. We will continue current goal. Pt current nutrition is NPO. Last recorded weight is 63 kg, stable Bowel Motility:+Bm reported 12/14 Labs Reviewed:Cr 0.5,Na 135, Hct 34.7,Hgb 10.8 Meds Noted:Protonix, Lovenox, Albuterol, LR, Atrovent Skin: Stage II pressure ulcer-coccyx Additional Notes: Patient NPO for EGD today. Plans for diet order advancement after procedure. Nutrition recommendations: Easy to Chew,Level 7 with Ensure Compact BID and Eric BID. Agree with diet orders. Monitoring: RD will monitor every 3 days.
[2021-12-15 13:52] LABS: Glucose Point of Care 104 mg/dl (65-105)
--- NOTE | 2021-12-15 14:31 | PM.CNPUL ---
Assessment and Plan Assessment and plan (1) Collapse of right lung: Code(s): J98.11 - Atelectasis Status: Acute Assessment and Plan: Patient with a history of esophageal reflux, vomiting for number of months with weight loss and a right middle lobe collapse. Patient has been treated with ceftriaxone and azithromycin and states that her cough and yellow to green phlegm has improved. She has been treated with ipratropium nebulizers and incentive spirometry and she says this does provoke a cough and her. The patient may have aspiration pneumonia, aspiration of a foreign body, and or lung cancer. I will repeat his chest x-ray today to assess for right middle lobe collapse. I will continue ceftriaxone and azithromycin. I will add albuterol to her ipratropium nebulizers an attempt to a add in expectoration. I will order a Cornet flutter valve. I spoke with the son and the at the bedside. Discussed with Rocio Vega. Plan History of Present Illness History of Present Illness Consult date: 12/16/21 Chief complaint: Pneumonia, collasped lung Narrative: 12/15/2021: This is a new pulmonary consult for pneumonia and right middle lobe collapse. 81-year-old woman with a history of gastroesophageal reflux, type 2 diabetes, arthritis of the knees and lower extremity neuropathy. At baseline the patient has no respiratory limitations in her activities of daily living but she is severely limited by arthritis of the knees and uses a cane as well as lower extremity neuropathy. She states she can walk around her house with a cane but it is not her lungs that limit her. She is a never tobacco smoker. She was exposed to secondhand smoke through her father but none since then. 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 she had uterine cancer in 2004 in which they removed everything per her report. She did receive a few radiation therapy after that but was told that they got it and things looked good she followed up for many years without any recurrence. She never received chemotherapy. For many years patient has had reflux of food and liquids with some spitting up. Over the last 60 days this has gotten progressively worse such that she is vomiting or regurgitating food, bile and has lost 25 lb. She denies ever having hematemesis. She denies any chest pain. Patient has had a chronic cough she says for the last 3-4 months that has worsened over the last 2 weeks in which she coughs up green phlegm. She feels this is coming from her lungs rather than from her stomach. She denies any fever, chills, rigors, chest pain, hemoptysis. She denies choking on any of her vomit. Patient presented to an outside hospital on 12/10 and had a chest x-ray that demonstrated a right middle lobe and lower lobe infiltrate consistent with a right middle lobe collapse. The left lung Was without infiltrates. The patient had a CT scan of the chest on 12/11/2021 and there is collapse of the lateral segment of the right middle lobe with possible central obstructing mass. Patient was started on ceftriaxone and azithromycin and transferred to our hostal on 12/12. On 12/12/2021 white blood cell count was 9.6 and the patient was continued on ceftriaxone and azithromycin. chest x-ray on 12/13 demonstrated continue consolidation in the right mid lung field consistent with right middle lobe collapse versus pneumonia. the patient is just returned from endoscopy and had an EGD that demonstrated a deformed esophagus with tertiary contractions a nonobstructive ring was present in the distal esophagus that underwent dilation. Mild gastritis with no mucosal bleeding. Biopsies were taken of the esophagus, stomach and duodenum to rule out celiac sprue. 12/15: Currently the patient tells me she has improved since going to the hospital and states that her coug
[2021-12-16] VITALS (12 sets, daily range): BP systolic 107–139; BP diastolic 63–80; PULSE 72–99; RESP 14–20; TEMP 35.8–36.6; O2SAT 98–100
[2021-12-16] MEDS: ALBUTEROL SULFATE NEB 2.5 MG/3 ML INH INHALATION ×5 (02:30→20:27)
[2021-12-16] MEDS: IPRATROPIUM BR 0.02% INH SOLN 0.5 MG/2.5 ML VIAL INHALATION ×5 (02:30→20:27)
[2021-12-16 06:25] LABS: Basophils Percent Auto 0.2 % (0.2-1.2); Eosinophils Absolute Auto 0.1 K/mm3 (0-0.3); Eosinophils Percent Auto 1.6 % (0-4.4); Hematocrit 36.6 % (37.0-47.0); Hemoglobin 11.6 g/dL (12.0-15.0); Immature Granulocyte Absolute 0.07 K/mm3 (0.00-0.031); Immature Granulocyte Percent A 1.3 % (0-0.5); Lymphocytes Absolute Auto 0.96 K/mm3 (0.9-3.2); Lymphocytes Percent Auto 17.4 % (18.3-44.2); Mean Corpuscular HGB Conc 31.7 g/dl (32-36); Mean Corpuscular Hemoglobin 30.9 pg (26-34); Mean Corpuscular Volume 97.6 fl (80-100); Monocytes Absolute Auto 0.4 K/mm3 (0.1-0.6); Monocytes Percent Auto 6.4 % (2.6-8.5); Neutrophils Percent Auto 73.1 % (45.5-73.1); Platelet Count Result 231 k/mm3 (150-375); Red Blood Count 3.75 M/mm3 (4.2-5.4); Red Cell Distribution Width 14.5 % (11.5-14.5); White Blood Count 5.5 K/mm3 (4.5-10.0)
[2021-12-16 06:37] LABS: Alanine Aminotransferase 15 U/L (6-35); Albumin Level 2.3 g/dL (3.5-5.1); Alkaline Phosphatase 65 U/L (38-126); Anion Gap 6 mmol/L (8-16); Aspartate Amino Transferase 20 U/L (14-36); Bilirubin,Total 0.3 mg/dL (0.2-1.3); Blood Urea Nitrogen 8 mg/dL (7-17); Carbon Dioxide 25 mmol/L (22-30); Chloride 103 mmol/L (98-107); Estimated CRCL calculation 64 ml/min; Estimated Glomerular Filt Rate > 60; Glucose 121 mg/dL (65-110); Sodium 134 mmol/L (137-145)
--- NOTE | 2021-12-16 07:05 | PM.IMPN ---
Progress Note: A&P Assessment and Plan (1) Dysphagia: Code(s): R13.10 - Dysphagia, unspecified Status: Acute Assessment and Plan: Monitor vital signs, I and O's, check stool output, neuro status and patient is a fall risk Monitor serum electrolytes and CBC Gentle IV fluid resuscitation Consult gastroenterology for further evaluation, appreciate assistance and recommendation EGD to be performed 12/15/2021, patient has not had a prior colonoscopy. Patient really has had an EGD prior in the past with esophageal dilatation. Consisting carb diet Speech therapy evaluated the patient performed a modified barium swallow. The modified barium swallow did reveal laryngeal penetration without aspiration. Patient is able to eat regular foods. Continue to monitor the patient while she eats and to avoid of possible aspiration of vomit. Patient was persistently vomiting this morning after food consumption and reported that she feels the food is still the back of her throat. Gastroenterology managing GERD symptoms. Patient is on Protonix IVP (2) Aspiration pneumonia: Code(s): J69.0 - Pneumonitis due to inhalation of food and vomit Status: Acute Assessment and Plan: Monitor vital signs, I&Os, neuro status and patient is a fall risk Follow WBC, serum electrolytes, temperature curves and cultures Send sputum cultures Obtain Pneumococcal antigen urine and legionella pneumophila Ag Ur Oxygen via NC; wean as tolerated. Keep SpO2 greater than 88% Gentle IV fluid resuscitation Ceftriaxone 2 gram IV q24H and Azithromycin 500mg IV q24H DuoNeb q6H and Albuterol q2H PRN P.r.n. Tylenol, Zofran, and melatonin WBC WNL Consult pulmonary possible candidacy for bronchoscopy further evaluation of possible obstruction due to aspiration my appreciate assistance and recommendations plan for CT of the chest on 12/17/2021 (3) Weight loss: Code(s): R63.4 - Abnormal weight loss Status: Acute Assessment and Plan: Consult registered dietitian Albumin 2.8 (4) Hypokalemia: Code(s): E87.6 - Hypokalemia Status: Acute Assessment and Plan: Replace serum electrolytes (5) Hypomagnesemia: Code(s): E83.42 - Hypomagnesemia Status: Acute Assessment and Plan: Replaced serum electrolytes (6) Diabetes: Code(s): E11.9 - Type 2 diabetes mellitus without complications Status: Acute Assessment and Plan: Insulin Lispro sliding scale, Accu-checks qAc and HS and Hold oral hypoglycemics (7) Abnormal finding on imaging: Code(s): R93.89 - Abnormal findings on diagnostic imaging of other specified body structures Status: Acute Assessment and Plan: Outlying facility did not send original CT report. Requested off to [facility]. Report obtained. Impression gestation total lobe collapse with obstruction of the right middle lobe bronchi is with irregular cystic and stent with a consolidated right middle lobe and could potentially reflect postobstructive pneumonia with questionable ligament see? Benign bronchial obstruction related to mucous [place] is possible therefore a consult to Pulmonary has been created Patient may have had aspiration she developed the possible obstruction. patient is at risk for aspiration due to the patulous esophagus Gallbladder was also distended secondary to Hema filling with gallstones, no definite features of acute cholecystitis. Patient denied any acute abdominal in Nonobstructive left nephrolithiasis Given the dunn of the urinary bladder, obtain urinalysis evaluate for possible emphysematous cystitis. Patient does not have any symptoms of UTI although she is currently being treated with Rocephin. Subjective Date/time seen: 12/16/21 07:05 During my evaluation this morning the patient consistently vomited after eating food. She may have opportunities for frequent aspiration due to vomiting. Ordered speech therapy aga
--- NOTE | 2021-12-16 07:17 | PM.PNPUL ---
Progress Note: A&P Assessment and Plan (1) Collapse of right lung: Code(s): J98.11 - Atelectasis Status: Acute Assessment and Plan: 12/15 Patient with a history of esophageal reflux, vomiting for number of months with weight loss and a right middle lobe collapse. Patient has been treated with ceftriaxone and azithromycin and states that her cough and yellow to green phlegm has improved. She has been treated with ipratropium nebulizers and incentive spirometry and she says this does provoke a cough and her. The patient may have aspiration pneumonia, aspiration of a foreign body, and or lung cancer. I will repeat his chest x-ray today to assess for right middle lobe collapse. I will continue ceftriaxone and azithromycin. I will add albuterol to her ipratropium nebulizers an attempt to a add in expectoration. I will order a Cornet flutter valve. I spoke with the son and the at the bedside. 12/16 Patient states that she is clinically unchanged. She slept well last night on room air. Current saturations on room air are 98%. she states she still has a cough with phlegm production but no hemoptysis. She is afebrile with a white blood cell count of 5.5. continue ceftriaxone. I would discontinue azithromycin as this was started on 12/10. continue albuterol and ipratropium nebulizers (change to while awake scheduling) and Cornet flutter valve to aid in sputum expectoration. I will check a chest x-ray tomorrow and if there is continued collapse in the right middle lobe will perform a CT scan chest. For continued collapse I have tentatively scheduled the patient for bronchoscopy on 12/18 at 1:00 p.m. Will follow with you. Plan Subjective Date/time seen: 12/16/21 07:17 Interval history: 12/15/2021:? This is a new pulmonary consult for pneumonia and right middle lobe collapse. ? 81-year-old woman with a history of gastroesophageal reflux, type 2 diabetes, arthritis of the knees and lower extremity neuropathy.? ? At baseline the patient has no respiratory limitations in her activities of daily living but she is severely limited by arthritis of the knees and uses a cane as well as lower extremity neuropathy.? She states she can walk around her house with a cane but it is not her lungs that limit her. ? She is a never tobacco smoker.? She was exposed to secondhand smoke through her father but none since then.? 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 ? she had uterine cancer in 2004 in which they removed everything per her report.? She did receive a few radiation therapy after that but was told that they got it and things looked good she followed up for many years without any recurrence.? She never received chemotherapy. For many years patient has had reflux of food and liquids with some spitting up.? Over the last 60 days this has gotten progressively worse such that she is vomiting or regurgitating food, bile and has lost 25 lb.? She denies ever having hematemesis.? She denies any chest pain. Patient has had a chronic cough she says for the last 3-4 months that has worsened over the last 2 weeks in which she coughs up green phlegm.? She feels this is coming from her lungs rather than from her stomach.? She denies any fever, chills, rigors, chest pain, hemoptysis. ? She denies choking on any of her vomit. ? Patient presented to an outside hospital on 12/10 And I have labs an H&P from 12/11/2021. The H and P states that she presented with weakness for 7 days, a fall 3 days but did not hit her head, denied fever, mild cough, vomiting after every meal, 50-55 lb weight loss over the last 4-5 months. In the emergency room she had a white blood cell count of 14.1, creatinine of 1.11, BUN of 42. She had a chest x-ray that demonstrated a right middle lobe and lower lobe infiltrate consistent with a right middle lobe collapse.? The
[2021-12-16] MEDS: DEXTROSE 5%/0.45% SOD CHL 1,000 ML 75 ML IV CONT (07:39)
[2021-12-16 08:05] LABS: Glucose Point of Care 143 mg/dl (65-105)
[2021-12-16] MEDS: PANTOPRAZOLE SODIUM IV 40 MG VIAL IV PUSH ×2 (08:10→20:54)
[2021-12-16] MEDS: ENOXAPARIN 40 MG/0.4 ML SYRINGE SUB-Q (08:10)
--- NOTE | 2021-12-16 10:48 | P.PNAN_ITS ---
Anes - Prog Note Post-Op Date/Time: 12/16/21 10:48 Cardiovascular status: normal Respiratory status: normal Airway patency: baseline Mental status: baseline Post-Op hydration status: normal Vital Signs: Last Vital Signs Temp 36.6 C 12/16/21 05:25 Pulse 90 12/16/21 08:55 Resp 18 12/16/21 08:55 BP 139/80 12/16/21 05:25 Pulse Ox 98 12/16/21 05:25 O2 Del Method Room Air 12/15/21 20:00 Pain Score (VAS): 0/10 I/O: Intake & Output 12/15/21 12/16/21 12/16/21 23:59 07:59 15:59 Intake Total 490 1300 240 Output Total 200 Balance 490 1100 240 Laboratory Tests 12/16/21 05:14 12/16/21 05:14 12/15/21 12/16/21 12/16/21 13:50 05:14 05:14 WBC 5.5 RBC 3.75 L Hgb 11.6 L Hct 36.6 L MCV 97.6 MCH 30.9 MCHC 31.7 L RDW 14.5 Plt Count 231 MPV 9.0 Immature Gran % (Auto) 1.3 H Neut % (Auto) 73.1 Lymph % (Auto) 17.4 L [place] % (Auto) 6.4 Eos % (Auto) 1.6 Baso % (Auto) 0.2 Lymph # (Auto) 0.96 [place] # (Auto) 0.4 Eos # (Auto) 0.1 Baso # (Auto) 0.0 Abs Immat Gran (auto) 0.07 H Absolute Neuts (auto) 4.0 Absolute Nucleated RBC 0.0 Nucleated RBC % 0.0 Sodium 134 L Potassium 3.0 L Chloride 103 Carbon Dioxide 25 Anion Gap 6 L BUN 8 Creatinine 0.50 L Estim Creat Clear Calc 64 Estimated GFR > 60 Glucose 121 H POC Capillary Glucose 104 Calcium 8.0 L Total Bilirubin 0.3 AST 20 ALT 15 Alkaline Phosphatase 65 Total Protein 5.0 L Albumin 2.3 L 12/16/21 07:53 WBC RBC Hgb Hct MCV MCH MCHC RDW Plt Count MPV Immature Gran % (Auto) Neut % (Auto) Lymph % (Auto) [place] % (Auto) Eos % (Auto) Baso % (Auto) Lymph # (Auto) [place] # (Auto) Eos # (Auto) Baso # (Auto) Abs Immat Gran (auto) Absolute Neuts (auto) Absolute Nucleated RBC Nucleated RBC % Sodium Potassium Chloride Carbon Dioxide Anion Gap BUN Creatinine Estim Creat Clear Calc Estimated GFR Glucose POC Capillary Glucose 143 H Calcium Total Bilirubin AST ALT Alkaline Phosphatase Total Protein Albumin Post-procedural complaints: none Patient Feedback: Patient satisfied with anesthetic care.
--- NOTE | 2021-12-16 11:17 | PCSTNOTE ---
Please refer to the Modified Barium Swallow Evaluation in the EMR.
[2021-12-16 11:55] LABS: Glucose Point of Care 139 mg/dl (65-105)
--- NOTE | 2021-12-16 13:09 | WPDGIPROGNO ---
Progress Note: A&P Assessment and Plan (1) Dysphagia: Code(s): R13.10 - Dysphagia, unspecified Status: Acute Assessment and Plan: s/p egd reviewed MBS no obvious aspiration but still need to be careful (2) Aspiration pneumonia: Code(s): J69.0 - Pneumonitis due to inhalation of food and vomit Status: Acute Assessment and Plan: on abx (3) Esophageal ring: Code(s): K22.2 - Esophageal obstruction Status: Acute Assessment and Plan: it was not obstructive and was dilated consider further studies as outpatient such as esophageal manometry if still complaining of dysphagia (4) Collapse of right lung: Code(s): J98.11 - Atelectasis Status: Acute (5) Chronic GERD: Code(s): K21.9 - Gastro-esophageal reflux disease without esophagitis Status: Acute (6) Malnutrition: Code(s): E46 - Unspecified protein-calorie malnutrition Status: Acute Subjective Date/time seen: 12/16/21 13:09 Interval history: egd yesterday with dilation of subtle non-obstrutive ring. MBS did reveal laryngeal penetration without aspiration.? Patient is able to eat, still some nausea, she is comfortable Review of Systems Review of Systems: All systems reviewed & are unremarkable except as noted in HPI and below Exam Narrative: patient is laying in bed Const: General: comfortable, no acute distress, well developed, alert, awake, ill appearing chronically and other ( generalized pallor) Nutritional Appearance: thin Orientation/consciousness: patient oriented x3 HENMT: Head: normal to inspection, normocephalic and atraumatic Ears: hearing grossly normal bilaterally Face and sinus: normal facial exam Eyes: General: appearance normal, both eyes and all related structures Pupils: Equal, round and reactive pupils present EOM: EOMs intact bilaterally Neck: Neck: full ROM and no lymphadenopathy Resp: Effort & Inspection: normal respiratory effort and able to speak in complete sentences Cardio: Jugular venous distension: no JVD Rate: regular rate Rhythm: regular rhythm GI: GI Palp: Yes Soft to palpation and Yes No hepatosplenomegaly present : General: Yes deferred Skin: Rashes: no rashes Neuro: General: patient oriented x3 and CN's II-XI intact bilaterally Cranial nerves: Yes CN's II-XII intact bilaterally and Yes Equal, round and reactive pupils present Cognition (Neuro): normal cognition Speech: normal speech Motor exam (neuro): 5/5 motor strength present throughout Extrem: General: normal to inspection, full ROM and no pedal edema Objective Data Vital Signs Vital Signs: Vital Signs - 24 hr 12/15/21 13:23 12/15/21 13:33 12/15/21 13:43 Temperature Pulse Rate 84 75 72 Respiratory Rate 20 18 18 Blood Pressure 97/64 L 97/63 L 113/68 Pulse Oximetry 98 100 99 Oxygen Delivery Room Air Room Air Room Air 12/15/21 14:00 12/15/21 15:07 12/15/21 15:18 Temperature 98.2 F Pulse Rate 69 73 70 Respiratory Rate 20 18 18 Blood Pressure 114/63 Pulse Oximetry 94 Oxygen Delivery 12/15/21 21:04 12/15/21 20:00 12/15/21 21:50 Temperature 98.0 F Pulse Rate 80 80 76 Respiratory Rate 18 18 21 H Blood Pressure 116/64 Pulse Oximetry 94 100 Oxygen Delivery Room Air 12/16/21 02:31 12/15/21 21:18 12/16/21 05:25 Temperature 97.8 F Pulse Rate 72 83 99 Respiratory Rate 16 18 20 Blood Pressure 139/80 Pulse Oximetry 98 Oxygen Delivery 12/16/21 08:55 Temperature Pulse Rate 90 Respiratory Rate 18 Blood Pressure Pulse Oximetry Oxygen Delivery Intake/Output Intake/Output: Intake & Output 12/13/21 12/14/21 12/15/21 12/16/21 23:59 23:59 23:59 23:59 Intake Total 870 3840 940 1540 Output Total 500 200 Balance 370 3840 940 1340 Meds/Results Medications: Active Medications Generic Name Dose Route Start Last Admin Trade Name Freq PRN Reason Stop Dose Admin Acetaminophen 650 mg 12/13/21 08
[2021-12-16] MEDS: TIMOLOL MALEATE 0.5% OP SOLN 5 ML BOTTLE 1 DROP EACH EYE (13:12)
[2021-12-16] MEDS: traMADol HCL (*CRX) 50 MG TABLET PO ×2 (13:14→17:43)
[2021-12-16 17:37] LABS: Glucose Point of Care 125 mg/dl (65-105)
[2021-12-17] VITALS (10 sets, daily range): BP systolic 114–143; BP diastolic 61–77; PULSE 66–84; RESP 14–20; TEMP 36.2–36.7; O2SAT 92–100
[2021-12-17] MEDS: DEXTROSE 5%/0.45% SOD CHL 1,000 ML 75 ML IV CONT ×2 (00:22→14:05)
[2021-12-17 05:49] LABS: Eosinophils Absolute Auto 0.1 K/mm3 (0-0.3); Eosinophils Percent Auto 2.9 % (0-4.4); Hematocrit 33.3 % (37.0-47.0); Hemoglobin 10.5 g/dL (12.0-15.0); Immature Granulocyte Absolute 0.06 K/mm3 (0.00-0.031); Immature Granulocyte Percent A 1.4 % (0-0.5); Lymphocytes Absolute Auto 0.66 K/mm3 (0.9-3.2); Lymphocytes Percent Auto 15.9 % (18.3-44.2); Mean Corpuscular HGB Conc 31.5 g/dl (32-36); Mean Corpuscular Hemoglobin 30.4 pg (26-34); Mean Corpuscular Volume 96.5 fl (80-100); Monocytes Absolute Auto 0.3 K/mm3 (0.1-0.6); Monocytes Percent Auto 6.7 % (2.6-8.5); Neutrophils Percent Auto 73.1 % (45.5-73.1); Platelet Count Result 178 k/mm3 (150-375); Red Blood Count 3.45 M/mm3 (4.2-5.4); Red Cell Distribution Width 14.5 % (11.5-14.5); White Blood Count 4.2 K/mm3 (4.5-10.0)
[2021-12-17 06:01] LABS: Alanine Aminotransferase 14 U/L (6-35); Albumin Level 2.2 g/dL (3.5-5.1); Alkaline Phosphatase 55 U/L (38-126); Anion Gap 5 mmol/L (8-16); Aspartate Amino Transferase 19 U/L (14-36); Bilirubin,Total 0.3 mg/dL (0.2-1.3); Blood Urea Nitrogen 5 mg/dL (7-17); Calcium 7.5 mg/dL (8.4-10.2); Carbon Dioxide 30 mmol/L (22-30); Chloride 100 mmol/L (98-107); Estimated CRCL calculation 54 ml/min; Estimated Glomerular Filt Rate > 60; Glucose 121 mg/dL (65-110); Potassium 2.9 mmol/L (3.4-5.0); Sodium 135 mmol/L (137-145)
[2021-12-17 06:03] LABS: INR 1.2; Partial Thromboplastin Time 33.1 SECONDS (22.3-36.8); Prothrombin Time 14.6 Seconds (11.1-14.7)
[2021-12-17 07:30] LABS: Glucose Point of Care 121 mg/dl (65-105)
[2021-12-17] MEDS: traMADol HCL (*CRX) 50 MG TABLET PO ×3 (08:00→16:26)
[2021-12-17] MEDS: SERTRALINE HCL 50 MG TABLET PO (08:00)
[2021-12-17] MEDS: ENOXAPARIN 40 MG/0.4 ML SYRINGE SUB-Q (08:01)
[2021-12-17] MEDS: PANTOPRAZOLE SODIUM IV 40 MG VIAL IV PUSH ×2 (08:01→20:52)
[2021-12-17] MEDS: TIMOLOL MALEATE 0.5% OP SOLN 5 ML BOTTLE 1 DROP EACH EYE (08:01)
[2021-12-17] MEDS: lisinopriL 10 MG TABLET PO (08:01)
--- NOTE | 2021-12-17 08:13 | PM.IMPN ---
Progress Note: A&P Assessment and Plan (1) Dysphagia: Code(s): R13.10 - Dysphagia, unspecified Status: Acute Assessment and Plan: Monitor vital signs, I and O's, check stool output, neuro status and patient is a fall risk Monitor serum electrolytes and CBC Consult gastroenterology for further evaluation, appreciate assistance and recommendation EGD to be performed 12/15/2021, patient has not had a prior colonoscopy. Patient really has had an EGD prior in the past with esophageal dilatation. Speech therapy evaluated the patient performed a modified barium swallow. The modified barium swallow did reveal laryngeal penetration without aspiration. Patient is able to eat regular foods. Continue to monitor the patient while she eats and to avoid of possible aspiration of vomit. Patient was persistently vomiting this morning after food consumption and reported that she feels the food is still the back of her throat. Gastroenterology managing GERD symptoms. Patient is on Protonix IVP --- Plan of care continues (2) Aspiration pneumonia: Code(s): J69.0 - Pneumonitis due to inhalation of food and vomit Status: Acute Assessment and Plan: Monitor vital signs, I&Os, neuro status and patient is a fall risk Follow WBC, serum electrolytes, temperature curves and cultures pending Pneumococcal antigen urine and legionella pneumophila Ag Ur Oxygen via NC; wean as tolerated. Keep SpO2 greater than 88% Gentle IV fluid resuscitation Ceftriaxone 2 gram IV q24H and Azithromycin 500mg IV q24H DuoNeb q6H and Albuterol q2H PRN P.r.n. Tylenol, Zofran, and melatonin WBC WNL Consult pulmonary possible candidacy for bronchoscopy further evaluation of possible obstruction due to aspiration my appreciate assistance and recommendations plan for repeat imaging and CT of the chest on 12/17/2021 (3) Weight loss: Code(s): R63.4 - Abnormal weight loss Status: Acute Assessment and Plan: Consult registered dietitian Albumin 2.8 (4) Hypokalemia: Code(s): E87.6 - Hypokalemia Status: Acute Assessment and Plan: Replace serum electrolytes (5) Hypomagnesemia: Code(s): E83.42 - Hypomagnesemia Status: Acute Assessment and Plan: Replaced serum electrolytes (6) Diabetes: Code(s): E11.9 - Type 2 diabetes mellitus without complications Status: Acute Assessment and Plan: Insulin Lispro sliding scale, Accu-checks qAc and HS and Hold oral hypoglycemics (7) Abnormal finding on imaging: Code(s): R93.89 - Abnormal findings on diagnostic imaging of other specified body structures Status: Acute Assessment and Plan: Outlying facility did not send original CT report. Requested off to [facility]. Report obtained. Impression gestation total lobe collapse with obstruction of the right middle lobe bronchi is with irregular cystic and stent with a consolidated right middle lobe and could potentially reflect postobstructive pneumonia with questionable ligament see? Benign bronchial obstruction related to mucous [place] is possible therefore a consult to Pulmonary has been created Patient may have had aspiration she developed the possible obstruction. patient is at risk for aspiration due to the patulous esophagus Gallbladder was also distended secondary to Hema filling with gallstones, no definite features of acute cholecystitis. Patient denied any acute abdominal in Nonobstructive left nephrolithiasis Given the dunn of the urinary bladder, obtain urinalysis evaluate for possible emphysematous cystitis. Patient does not have any symptoms of UTI although she is currently being treated with Rocephin. --- stable Subjective Date/time seen: 12/17/21 08:13 patient is alert and oriented x4. Patient is worried whether not the CT will be covered by her insurance. Dr. Roger with Pulmonary is on board for the patient's possible right mid lobe col
[2021-12-17] MEDS: POTASSIUM CHLORIDE 20 MEQ TABLET 40 MEQ PO (09:40)
[2021-12-17] MEDS: POTASSIUM CHLORIDE INJ 40 MEQ in SODIUM CHLORIDE 0.9% IV 500 ML 130 MEQ IVPB (09:41)
[2021-12-17] MEDS: ALBUTEROL SULFATE NEB 2.5 MG/3 ML INH INHALATION ×3 (09:56→19:31)
[2021-12-17] MEDS: IPRATROPIUM BR 0.02% INH SOLN 0.5 MG/2.5 ML VIAL INHALATION ×3 (09:56→19:31)
[2021-12-17 11:56] LABS: Glucose Point of Care 122 mg/dl (65-105)
--- NOTE | 2021-12-17 12:48 | WPDGIPROGNO ---
Progress Note: A&P Assessment and Plan (1) Dysphagia: Code(s): R13.10 - Dysphagia, unspecified Status: Acute Assessment and Plan: s/p egd with dilation reviewed MBS poor appetite but eating more (2) Aspiration pneumonia: Code(s): J69.0 - Pneumonitis due to inhalation of food and vomit Status: Acute Assessment and Plan: on abx (3) Esophageal ring: Code(s): K22.2 - Esophageal obstruction Status: Acute Assessment and Plan: it was not obstructive and was dilated consider further studies as outpatient such as esophageal manometry if still complaining of dysphagia (4) Collapse of right lung: Code(s): J98.11 - Atelectasis Status: Acute Assessment and Plan: pulmonary on board (5) Chronic GERD: Code(s): K21.9 - Gastro-esophageal reflux disease without esophagitis Status: Acute (6) Malnutrition: Code(s): E46 - Unspecified protein-calorie malnutrition Status: Acute Subjective Date/time seen: 12/17/21 12:48 Interval history: she thinks that dilation helped some, no other changes Review of Systems Review of Systems: All systems reviewed & are unremarkable except as noted in HPI and below Exam Narrative: patient is laying in bed Const: General: comfortable, no acute distress, well developed, alert, awake and ill appearing chronically Nutritional Appearance: thin Orientation/consciousness: patient oriented x3 HENMT: Head: normal to inspection, normocephalic and atraumatic Eyes: General: appearance normal, both eyes and all related structures Neck: Neck: full ROM and no lymphadenopathy Resp: Effort & Inspection: normal respiratory effort and able to speak in complete sentences Cardio: Jugular venous distension: no JVD Rate: regular rate Rhythm: regular rhythm GI: GI Palp: Yes Soft to palpation and No Tenderness to palpation present (GI) Auscultation: normal bowel sounds Skin: Rashes: no rashes Neuro: General: patient oriented x3 Cranial nerves: Yes CN's II-XII intact bilaterally and Yes Equal, round and reactive pupils present Cognition (Neuro): normal cognition Speech: normal speech Motor exam (neuro): 5/5 motor strength present throughout Extrem: General: normal to inspection, full ROM and no pedal edema Objective Data Vital Signs Vital Signs: Vital Signs - 24 hr 12/16/21 14:07 12/16/21 14:50 12/16/21 16:54 Temperature 96.5 F L Pulse Rate 78 74 78 Respiratory Rate 16 14 16 Blood Pressure 128/68 Pulse Oximetry 100 Oxygen Delivery 12/16/21 14:20 12/16/21 17:02 12/16/21 20:03 Temperature 97 F L Pulse Rate 78 80 82 Respiratory Rate 16 16 16 Blood Pressure 107/63 Pulse Oximetry 100 Oxygen Delivery 12/16/21 20:30 12/16/21 20:00 12/17/21 04:20 Temperature 97.3 F L Pulse Rate 82 82 77 Respiratory Rate 16 16 18 Blood Pressure 143/77 H Pulse Oximetry 100 92 Oxygen Delivery Room Air 12/17/21 09:58 12/17/21 10:04 Temperature Pulse Rate 84 84 Respiratory Rate 20 20 Blood Pressure Pulse Oximetry Oxygen Delivery Intake/Output Intake/Output: Intake & Output 12/14/21 12/15/21 12/16/21 12/17/21 23:59 23:59 23:59 23:59 Intake Total 3840 940 2830 240 Output Total 200 Balance 3840 940 2630 240 Meds/Results Medications: Active Medications Generic Name Dose Route Start Last Admin Trade Name Freq PRN Reason Stop Dose Admin Acetaminophen 650 mg 12/13/21 08:39 Acetaminophen 325 Mg Tablet PO Q6H PRN Mild Pain (1-3) or Fever Al Hydrox/Mg Hydrox/Simethicone 30 ml 12/12/21 22:08 Mag Hydrox/Al Hydrox/Simeth 30 Ml Udc PO QID PRN Dyspepsia Albuterol 2.5 mg 12/16/21 08:00 12/17/21 12:05 Albuterol Sulfate Neb 2.5 Mg/3 Ml Inh INHALATION Not Given [id number] [facility] Dextrose 12.5 gm 12/13/21 12:19 Dextrose 50% 25 Gm/50 Ml Syringe IV PUSH PRN PRN Hypoglycemia Protocol Enoxapar
[2021-12-17 16:51] LABS: Glucose Point of Care 112 mg/dl (65-105)
--- NOTE | 2021-12-17 17:47 | PM.PNPUL ---
Progress Note: A&P Assessment and Plan (1) Collapse of right lung: Code(s): J98.11 - Atelectasis Status: Acute Assessment and Plan: 12/15 Patient with a history of esophageal reflux, vomiting for number of months with weight loss and a right middle lobe collapse. Patient has been treated with ceftriaxone and azithromycin and states that her cough and yellow to green phlegm has improved. She has been treated with ipratropium nebulizers and incentive spirometry and she says this does provoke a cough and her. The patient may have aspiration pneumonia, aspiration of a foreign body, and or lung cancer. I will repeat his chest x-ray today to assess for right middle lobe collapse. I will continue ceftriaxone and azithromycin. I will add albuterol to her ipratropium nebulizers an attempt to a add in expectoration. I will order a Cornet flutter valve. I spoke with the son and the at the bedside. 12/16 Patient states that she is clinically unchanged. She slept well last night on room air. Current saturations on room air are 98%. she states she still has a cough with phlegm production but no hemoptysis. She is afebrile with a white blood cell count of 5.5. Continue ceftriaxone. I would discontinue azithromycin as this was started on 12/10. continue albuterol and ipratropium nebulizers (change to while awake scheduling) and Cornet flutter valve to aid in sputum expectoration. I will check a chest x-ray tomorrow and if there is continued collapse in the right middle lobe will perform a CT scan chest. For continued collapse I have tentatively scheduled the patient for bronchoscopy on 12/18 at 1:00 p.m. 12/17 Patient states she has no respiratory complaints. Room air saturations 99%. Patient is still having some vomiting. White blood cell count 4.2, she is afebrile. Chest x-ray with unchanged collapse lateral segment of the right middle lobe. Continue ceftriaxone (started 12/10). x-ray with continued collapse the right middle lobe and I will perform a CT scan of the chest today. if the CT scan still shows collapse of the right middle lobe I recommend bronchoscopy. Coags are normal. I have spoke with the patient and son regarding the risks and benefits Of the procedure they wish to proceed. Will make her NPO after midnight. Will follow with you. Plan Subjective Date/time seen: 12/17/21 17:47 Interval history: 12/15/2021:? This is a new pulmonary consult for pneumonia and right middle lobe collapse. ? 81-year-old woman with a history of gastroesophageal reflux, type 2 diabetes, arthritis of the knees and lower extremity neuropathy.? ? At baseline the patient has no respiratory limitations in her activities of daily living but she is severely limited by arthritis of the knees and uses a cane as well as lower extremity neuropathy.? She states she can walk around her house with a cane but it is not her lungs that limit her. ? She is a never tobacco smoker.? She was exposed to secondhand smoke through her father but none since then.? 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 ? she had uterine cancer in 2004 in which they removed everything per her report.? She did receive a few radiation therapy after that but was told that they got it and things looked good she followed up for many years without any recurrence.? She never received chemotherapy. For many years patient has had reflux of food and liquids with some spitting up.? Over the last 60 days this has gotten progressively worse such that she is vomiting or regurgitating food, bile and has lost 25 lb.? She denies ever having hematemesis.? She denies any chest pain. Patient has had a chronic cough she says for the last 3-4 months that has worsened over the last 2 weeks in which she coughs up green phlegm.? She feels this is coming from her lungs rather than from her sto
[2021-12-18] VITALS (20 sets, daily range): BP systolic 105–155; BP diastolic 52–95; PULSE 69–93; RESP 16–23; TEMP 36–36.6; O2SAT 94–100
[2021-12-18] MEDS: DEXTROSE 5%/0.45% SOD CHL 1,000 ML 75 ML IV CONT ×2 (05:14→16:02)
[2021-12-18 07:48] LABS: Glucose Point of Care 101 mg/dl (65-105)
[2021-12-18] MEDS: ALBUTEROL SULFATE NEB 2.5 MG/3 ML INH INHALATION ×3 (08:10→20:10)
[2021-12-18] MEDS: IPRATROPIUM BR 0.02% INH SOLN 0.5 MG/2.5 ML VIAL INHALATION ×3 (08:10→20:10)
--- NOTE | 2021-12-18 08:40 | PM.PNPUL ---
Progress Note: A&P Assessment and Plan (1) Collapse of right lung: Code(s): J98.11 - Atelectasis Status: Acute Assessment and Plan: 12/15 Patient with a history of esophageal reflux, vomiting for number of months with weight loss and a right middle lobe collapse. Patient has been treated with ceftriaxone and azithromycin and states that her cough and yellow to green phlegm has improved. She has been treated with ipratropium nebulizers and incentive spirometry and she says this does provoke a cough and her. The patient may have aspiration pneumonia, aspiration of a foreign body, and or lung cancer. I will repeat his chest x-ray today to assess for right middle lobe collapse. I will continue ceftriaxone and azithromycin. I will add albuterol to her ipratropium nebulizers an attempt to a add in expectoration. I will order a Cornet flutter valve. I spoke with the son and the at the bedside. 12/16 Patient states that she is clinically unchanged. She slept well last night on room air. Current saturations on room air are 98%. she states she still has a cough with phlegm production but no hemoptysis. She is afebrile with a white blood cell count of 5.5. Continue ceftriaxone. I would discontinue azithromycin as this was started on 12/10. continue albuterol and ipratropium nebulizers (change to while awake scheduling) and Cornet flutter valve to aid in sputum expectoration. I will check a chest x-ray tomorrow and if there is continued collapse in the right middle lobe will perform a CT scan chest. For continued collapse I have tentatively scheduled the patient for bronchoscopy on 12/18 at 1:00 p.m. 12/17 Patient states she has no respiratory complaints. Room air saturations 99%. Patient is still having some vomiting. White blood cell count 4.2, she is afebrile. Chest x-ray with unchanged collapse lateral segment of the right middle lobe. Continue ceftriaxone (started 12/10). x-ray with continued collapse the right middle lobe and I will perform a CT scan of the chest today. if the CT scan still shows collapse of the right middle lobe I recommend bronchoscopy. Coags are normal. I have spoke with the patient and son regarding the risks and benefits Of the procedure they wish to proceed. Will make her NPO after midnight. 12/18 No respiratory complaints other than sputum production. White blood cell count is 4.2. Patient is afebrile. CT scan shows consolidation of the lateral segment of the right middle lobe now with air bronchograms. There is no mediastinal lymphadenopathy. Continue ceftriaxone. Will proceed with bronchoscopy later today. Will follow with you. Plan Subjective Date/time seen: 12/18/21 08:40 Interval history: 12/15/2021:? This is a new pulmonary consult for pneumonia and right middle lobe collapse. ? 81-year-old woman with a history of gastroesophageal reflux, type 2 diabetes, arthritis of the knees and lower extremity neuropathy.? ? At baseline the patient has no respiratory limitations in her activities of daily living but she is severely limited by arthritis of the knees and uses a cane as well as lower extremity neuropathy.? She states she can walk around her house with a cane but it is not her lungs that limit her. ? She is a never tobacco smoker.? She was exposed to secondhand smoke through her father but none since then.? 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 ? she had uterine cancer in 2004 in which they removed everything per her report.? She did receive a few radiation therapy after that but was told that they got it and things looked good she followed up for many years without any recurrence.? She never received chemotherapy. For many years patient has had reflux of food and liquids with some spitting up.? Over the last 60 days this has gotten progressively worse such that she i
[2021-12-18] MEDS: PANTOPRAZOLE SODIUM IV 40 MG VIAL IV PUSH ×2 (08:42→20:15)
[2021-12-18] MEDS: TIMOLOL MALEATE 0.5% OP SOLN 5 ML BOTTLE 1 DROP EACH EYE (08:43)
--- NOTE | 2021-12-18 11:22 | PCNFU ---
Nutrition Follow-Up Complete: Increased protein needs as related to would as evidenced by stage II PU reported. Goal: Adequate Intake of at least 75% of meals/supplements Patient is progressing towards goal. We will continue current goal. Pt current nutrition is NPO. Last recorded weight is 63 kg, stable. Bowel Motility: +Bm reported 12/16 Labs Reviewed:no new labs to report. Meds Noted:Protonix, Lovenox, Albuterol, Atrovent Skin:stage II pressure ulcer-coccyx Additional Notes: Patient is NPO for Bronchoscopy today. Diet order had advanced over the weekend, oral intake 50-80% of meals. Recommend continuing ensure compact BID providing an additional 220 kcals and 9 gms proteins and Eric BID for wound healing providing an additional 90 kcals and 2.5 gms protein. Agree with diet orders. Monitoring: RD will monitor every 3 days.
--- NOTE | 2021-12-18 11:59 | PM.IMPN ---
Progress Note: A&P Assessment and Plan (1) Dysphagia: Code(s): R13.10 - Dysphagia, unspecified Status: Acute Assessment and Plan: Monitor vital signs, I and O's, check stool output, neuro status and patient is a fall risk Monitor serum electrolytes and CBC Consult gastroenterology for further evaluation, appreciate assistance and recommendation EGD to be performed 12/15/2021, patient has not had a prior colonoscopy. Patient really has had an EGD prior in the past with esophageal dilatation. Speech therapy evaluated the patient performed a modified barium swallow. The modified barium swallow did reveal laryngeal penetration without aspiration. Patient is able to eat regular foods. Continue to monitor the patient while she eats and to avoid of possible aspiration of vomit. Patient was persistently vomiting this morning after food consumption and reported that she feels the food is still the back of her throat. Gastroenterology managing GERD symptoms. Patient is on Protonix IVP --- Plan of care continues (2) Aspiration pneumonia: Code(s): J69.0 - Pneumonitis due to inhalation of food and vomit Status: Acute Assessment and Plan: Monitor vital signs, I&Os, neuro status and patient is a fall risk Follow WBC, serum electrolytes, temperature curves and cultures pending Pneumococcal antigen urine and legionella pneumophila Ag Ur Oxygen via NC; wean as tolerated. Keep SpO2 greater than 88% Gentle IV fluid resuscitation Ceftriaxone 2 gram IV q24H and Azithromycin 500mg IV q24H DuoNeb q6H and Albuterol q2H PRN P.r.n. Tylenol, Zofran, and melatonin WBC WNL Consult pulmonary possible candidacy for bronchoscopy further evaluation of possible obstruction due to aspiration my appreciate assistance and recommendations plan for repeat imaging and CT of the chest on 12/17/2021 (3) Weight loss: Code(s): R63.4 - Abnormal weight loss Status: Acute Assessment and Plan: Consult registered dietitian Albumin 2.8 (4) Hypokalemia: Code(s): E87.6 - Hypokalemia Status: Acute Assessment and Plan: Replace serum electrolytes (5) Hypomagnesemia: Code(s): E83.42 - Hypomagnesemia Status: Acute Assessment and Plan: Replaced serum electrolytes (6) Diabetes: Code(s): E11.9 - Type 2 diabetes mellitus without complications Status: Acute Assessment and Plan: Insulin Lispro sliding scale, Accu-checks qAc and HS and Hold oral hypoglycemics (7) Abnormal finding on imaging: Code(s): R93.89 - Abnormal findings on diagnostic imaging of other specified body structures Status: Acute Assessment and Plan: Outlying facility did not send original CT report. Requested off to [facility]. Report obtained. Impression gestation total lobe collapse with obstruction of the right middle lobe bronchi is with irregular cystic and stent with a consolidated right middle lobe and could potentially reflect postobstructive pneumonia with questionable ligament see? Benign bronchial obstruction related to mucous [place] is possible therefore a consult to Pulmonary has been created Patient may have had aspiration she developed the possible obstruction. patient is at risk for aspiration due to the patulous esophagus Gallbladder was also distended secondary to Hema filling with gallstones, no definite features of acute cholecystitis. Patient denied any acute abdominal in Nonobstructive left nephrolithiasis Given the dunn of the urinary bladder, obtain urinalysis evaluate for possible emphysematous cystitis. Patient does not have any symptoms of UTI although she is currently being treated with Rocephin. --- stable Subjective Date/time seen: 12/18/21 11:59 Patient is doing well this morning this repeat CT revealed minimal improvement. patient will have a bronchoscopy performed today. No acute respiratory distress during the night. Patient r
--- NOTE | 2021-12-18 12:23 | PC.NURSE ---
Pt was transported via wheelchair for bronchoscopy
[2021-12-18 12:34] LABS: Glucose Point of Care 116 mg/dl (65-105)
[2021-12-18] MEDS: LACTATED RINGERS 1,000 ML 150 ML IV CONT (12:38)
--- NOTE | 2021-12-18 13:23 | WPDANESEPPF ---
Anes - Initial Pre Proc Eval Procedure: Operation Date: 12/15/21 14:30 Proposed Procedures p Esophagogastroduodenoscopy - Avery Mayorga MD Operation Date: 12/18/21 13:45 Proposed Procedures p Flexible Bronchoscopy w Fluoro - Norm Roger MD Date/Time: 12/18/21 13:23 Surgeon: Vickie Romero MD Pre Op Diagnosis: Pneumonia, collasped lung Patient Data Age: 81 Gender: F Height: 1.63 m Weight: 63 kg Last Vital Signs Temp 96.8 F L 12/18/21 12:35 Pulse 71 12/18/21 12:49 Resp 16 12/18/21 12:49 BP 155/95 H 12/18/21 12:35 Pulse Ox 100 12/18/21 12:35 O2 Del Method Room Air 12/18/21 12:35 Allergies Allergy/AdvReac Type Severity Reaction Status Date / Time Penicillins Allergy Hives Verified 12/18/21 12:33 Sulfa (Sulfonamide Allergy Hives Verified 12/18/21 12:33 Antibiotics) Home Medications Medication Instructions Recorded Confirmed Type ezetimibe 10 mg tablet (Zetia) 10 mg PO DAILY 12/12/21 12/12/21 History lisinopril 10 mg tablet (Zestril) 10 mg PO DAILY 12/12/21 12/12/21 History metformin 500 mg tablet 500 mg PO DAILY 12/12/21 12/12/21 History omeprazole 40 mg capsule,delayed 40 mg PO DAILY 12/12/21 12/12/21 History release sertraline 50 mg tablet (Zoloft) 50 mg PO DAILY 12/12/21 12/12/21 History timolol maleate 0.5 % eye drops See Rx Instructions .Route .COMPLEX 12/12/21 12/12/21 History (Timoptic) tramadol 50 mg tablet (Ultram) 50 mg PO TID 12/12/21 12/12/21 History Laboratory Tests 12/17/21 12/18/21 12/18/21 16:32 07:45 12:31 POC Capillary Glucose 112 mg/dl H mg/dl 101 mg/dl mg/dl 116 mg/dl H mg/dl (65-105) (65-105) (65-105) Patient hx anesthesia problems: none Family hx anesthesia problems: none Results Review: All pre-operative results and documents have been reviewed as part of the pre-operative evaluation. [facility] Past Medical History Medical History (Updated 12/16/21 @ 13:11 by Avery Mayorga MD) Chronic GERD Diabetes DVT (deep venous thrombosis) Esophageal ring HTN (hypertension) Malnutrition Osteoarthritis Family History Family History (Updated 12/12/21 @ 20:51 by Giuseppe Muñiz RN) Father Diabetes mellitus Mother Diabetes mellitus Sibling Dementia Other Heart disease Social History Social History Smoking status: Never smoker Alcohol intake: never Substance use: never Spiritual care concerns: No Anes - Eval Final PreProcedure Day of Procedure 12/18/21 13:23 Patient weight: normal Heart: regular rate and rhythm Lungs: clear to auscultation Airway: Mallampati scale class II Neurological: alert and oriented Last oral intake: >/= 8 hours ASA classification: III Emergent: no Anesthetic plan: proceed Anesthesia type and monitoring: general ETT and standard monitoring Results Review: All pre-operative results and documents have been reviewed as part of the pre-operative evaluation. Informed Consent: The patient's anesthetic plan and its attendant risks and benefits were discussed with the patient/family/POA. Questions were solicited and answers provided to the satisfaction of the patient/family/POA.
[2021-12-18] MEDS: LIDOCAINE HCL 2% LOCAL INJ 20 ML VIAL IRRIGATION (14:14)
--- NOTE | 2021-12-18 14:26 | SUR.OPER ---
Bronchoscopy: 165ml NS in and 55ml NS out
--- NOTE | 2021-12-18 14:29 | SUR.PHASEII ---
X-Ray here at bedside.
--- NOTE | 2021-12-18 15:05 | SUR.PHASEII ---
Dr. Roger notified and results of chest xray given. No further orders received at this time. Pt. may have ice chips as needed and tolerated.
[2021-12-18 15:52] LABS: Appearance Bronchial Fluid Bloody; Color Bronchial Fluid Red; Lymphocytes Bronchial Fluid 5 %; Monocytes Bronchial Fluid 7 %; Neutrophils Bronchial Fluid 88 %; Source Bronchial Fluid Bronchial Lavage
[2021-12-18 17:08] LABS: Glucose Point of Care 109 mg/dl (65-105)
[2021-12-18] MEDS: traMADol HCL (*CRX) 50 MG TABLET PO (17:41)
--- NOTE | 2021-12-18 17:42 | PCRCNOTE ---
Window of time for administration has passed. See next scheduled administration.
[2021-12-19] VITALS (10 sets, daily range): BP systolic 93–140; BP diastolic 56–79; PULSE 73–90; RESP 14–20; TEMP 36.6–36.8; O2SAT 96–100
--- NOTE | 2021-12-19 07:15 | WPDANESPN ---
Anes - Prog Note Post-Op Date/Time: 12/19/21 07:15 Cardiovascular status: normal Respiratory status: normal Airway patency: baseline Mental status: baseline Post-Op hydration status: normal Vital Signs: Last Vital Signs Temp 36.6 C 12/19/21 06:00 Pulse 88 12/19/21 06:00 Resp 20 12/19/21 06:00 BP 140/79 12/19/21 06:00 Pulse Ox 99 12/19/21 06:00 O2 Del Method Room Air 12/18/21 20:10 O2 Flow Rate 2 12/18/21 14:59 Pain Score (VAS): 1 I/O: Intake & Output 12/18/21 12/18/21 12/19/21 15:59 23:59 07:59 Intake Total 0 1290 Output Total 750 450 Balance 0 540 -450 Laboratory Tests 12/17/21 05:37 12/17/21 05:37 12/18/21 12/18/21 12/18/21 07:45 12:31 14:47 POC Capillary Glucose 101 116 H Bronch Specimen Source Bronchial lavage Bronchial Fluid Color Red Bronchial Fluid Appearance Bloody Bronchial Neutrophils 88 Bronchial Lymphocytes 5 Bronchial Monocytes 7 Bronchial Eosinophils TNP Bronchial Macrophages TNP Bronchial Other Cells TNP 12/18/21 16:59 POC Capillary Glucose 109 H Bronch Specimen Source Bronchial Fluid Color Bronchial Fluid Appearance Bronchial Neutrophils Bronchial Lymphocytes Bronchial Monocytes Bronchial Eosinophils Bronchial Macrophages Bronchial Other Cells Post-procedural complaints: none Patient Feedback: Patient satisfied with anesthetic care.
[2021-12-19 08:08] LABS: Glucose Point of Care 113 mg/dl (65-105)
[2021-12-19] MEDS: DEXTROSE 5%/0.45% SOD CHL 1,000 ML 75 ML IV CONT ×2 (08:12→22:07)
[2021-12-19] MEDS: SERTRALINE HCL 50 MG TABLET PO (08:15)
[2021-12-19] MEDS: metFORMIN HCL 500 MG TABLET PO (08:15)
[2021-12-19] MEDS: EZETIMIBE 10 MG TABLET PO (08:15)
[2021-12-19] MEDS: PANTOPRAZOLE SODIUM IV 40 MG VIAL IV PUSH ×2 (08:15→20:36)
[2021-12-19] MEDS: lisinopriL 10 MG TABLET PO (08:15)
[2021-12-19] MEDS: TIMOLOL MALEATE 0.5% OP SOLN 5 ML BOTTLE 1 DROP EACH EYE (08:16)
[2021-12-19] MEDS: ENOXAPARIN 40 MG/0.4 ML SYRINGE SUB-Q (08:20)
[2021-12-19] MEDS: traMADol HCL (*CRX) 50 MG TABLET PO ×3 (08:22→17:50)
--- NOTE | 2021-12-19 09:11 | PM.PNPUL ---
Progress Note: A&P Assessment and Plan (1) Abnormal finding on imaging: Code(s): R93.89 - Abnormal findings on diagnostic imaging of other specified body structures Status: Acute (2) Chronic GERD: Code(s): K21.9 - Gastro-esophageal reflux disease without esophagitis Status: Acute (3) Diabetes: Code(s): E11.9 - Type 2 diabetes mellitus without complications Status: Acute (4) Aspiration pneumonia: Code(s): J69.0 - Pneumonitis due to inhalation of food and vomit Status: Acute Assessment and Plan: 81-year-old female presented with leukocytosis,, weakness of several weeks duration and right middle lobe infiltrate probably related to aspiration pneumonia given the history of a acid reflux disease with vomiting. Patient is currently improved, having a mild cough with minimal sputum production of green color. She has undergone bronchoscopy with BAL of the right middle lobe. There was no evidence of intraluminal growth. Gram stain and culture of BAL pending. Plan: await preliminary results of BAL Gram stain and culture. Anticipate discharging patient soon on Augmentin orally for 2 weeks. The patient will need follow-up with a chest x-ray in approximately 1 month to document clearing of the right mid lobe infiltrate. Subjective Date/time seen: 12/19/21 09:11 81-year-old female was hospitalized because of right middle lobe infiltrate. [place] [facility] [place]. Initial workup showed leukocytosis and right middle lobe infiltrate for which the patient was treated with ceftriaxone and Zithromax. She was subsequently transferred to [facility] for further care. The patient has been antibiotics for possible community-acquired pneumonia. She has had history of acid reflux disease with frequent vomiting. Patient underwent bronchoscopy yesterday. BAL Gram stain and cultures pending. Patient continues to be on ceftriaxone IV. She has a mild cough with minimal sputum production of green color. She has no fever chills hemoptysis night sweats or wheezing. She is eager to go home. Review of Systems Review of Systems: All system review is negative except as noted in HPI and below. Exam Narrative: GENERAL APPEARANCE: Well developed, well nourished, alert and cooperative, and appears to be in no acute distress While breathing ambient air. SKIN: Inspection of the skin reveals no rashes, ulcerations or petechiae. HEENT: Sclerae anicteric and conjunctivae pink and moist. Extraocular movements were intact and pupils were equal, round, and reactive to light. The oral mucosa, hard and soft palate, tongue and posterior pharynx were normal. NECK: Supple. There was no thyroid enlargement, and no tenderness, or masses were felt. CHEST: Normal AP diameter and normal contour without any kyphoscoliosis. LUNGS: Auscultation of the lungs Decreased breath sounds right lateral chest no wheezing CARDIAC: There was a regular rate and rhythm without any murmurs, gallops, rubs. ABDOMEN: Soft and nontender with normal bowel sounds. There was no organomegaly. LYMPH NODES: No lymphadenopathy was appreciated in the neck. EXTREMITIES: No cyanosis, clubbing or edema. NEUROLOGIC: Alert and oriented x 3. Normal affect. Objective Data Vital Signs Vital Signs: Vital Signs - 24 hr 12/18/21 12:35 12/18/21 12:40 12/18/21 12:49 Temperature 36.0 C L Pulse Rate 76 74 71 Respiratory Rate 18 16 16 Blood Pressure 155/95 H Pulse Oximetry 100 Oxygen Delivery Room Air Oxygen Flow Rate 12/18/21 14:20 12/18/21 14:30 12/18/21 14:40 Temperature 36.5 C Pulse Rate 69 76 88 Respiratory Rate 23 H 18 20 Blood Pressure 147/70 H 149/81 H 141/73 H Pulse Oximetry 100 100 100 Oxygen Delivery High Flow Therapy with Fa High Flow Therapy with Fa High Flow Therapy with Fa Oxygen Flow Rate 6 6 6 12/18/21 14:50 12/18/21 14:59 08/0
[2021-12-19 10:34] LABS: CRP 0.9 mg/dL (<1.0)
[2021-12-19 12:15] LABS: Glucose Point of Care 125 mg/dl (65-105)
--- NOTE | 2021-12-19 12:55 | PM.DS ---
DS: Admitting Diagnosis Discharge Date December 19, 2021 Admitting Diagnosis Pneumonia DS: Discharge Diagnosis Discharge Diagnosis (1) Dysphagia: Code(s): R13.10 - Dysphagia, unspecified Status: Acute Assessment and Plan: Monitor vital signs, I and O's, check stool output, neuro status and patient is a fall risk Monitor serum electrolytes and CBC Consult gastroenterology for further evaluation, appreciate assistance and recommendation EGD to be performed 12/15/2021, patient has not had a prior colonoscopy. Patient really has had an EGD prior in the past with esophageal dilatation. Speech therapy evaluated the patient performed a modified barium swallow. The modified barium swallow did reveal laryngeal penetration without aspiration. Patient is able to eat regular foods. Continue to monitor the patient while she eats and to avoid of possible aspiration of vomit. Patient was persistently vomiting this morning after food consumption and reported that she feels the food is still the back of her throat. Gastroenterology managing GERD symptoms. Patient is on Protonix IVP --- Plan of care continues (2) Aspiration pneumonia: Code(s): J69.0 - Pneumonitis due to inhalation of food and vomit Status: Acute Assessment and Plan: Consult pulmonary and status post bronchoscopy. Per Pulmonary patient will continue on 8 days of clindamycin. For likely aspiration pneumonia (3) Weight loss: Code(s): R63.4 - Abnormal weight loss Status: Acute Assessment and Plan: Consult registered dietitian Albumin 2.8 (4) Hypokalemia: Code(s): E87.6 - Hypokalemia Status: Acute Assessment and Plan: Replace serum electrolytes (5) Hypomagnesemia: Code(s): E83.42 - Hypomagnesemia Status: Acute Assessment and Plan: Replaced serum electrolytes (6) Diabetes: Code(s): E11.9 - Type 2 diabetes mellitus without complications Status: Acute Assessment and Plan: Resume home meds (7) Abnormal finding on imaging: Code(s): R93.89 - Abnormal findings on diagnostic imaging of other specified body structures Status: Acute Assessment and Plan: Likely related to pneumonia and aspiration. See plan above DS: Summary Hospital Course Hospital Course: Patient is a 81-year-old female who was admitted for respiratory complaints. Ten to note she was also having some dysphagia and inability to swallow. Good GI did evaluate the patient today EGD with dilation. This helped her swallowing difficulty significantly. She is now tolerating a normal diet. Also to note patient had collapse of left lower lobe which is likely related to aspiration. Patient did undergo bronchoscopy and cultures were obtained. Pulmonary was consulted and felt the patient go home on clindamycin. She is satting fine walking around the room and doing normal activities. Time Spent with Patient Time attestation: Total time spent providing and/or coordinating discharge services: Exam Narrative: General: No acute distress. Mental Status: Awake, alert and oriented to person, place, situation, and time with clear speech. Skin: Skin in warm, dry and intact without rashes or lesions. Head: Normocephalic and atraumatic. Eyes: Conjunctivae are clear without exudates or hemorrhage. Sclera is non-icteric. EOM are intact, PERRLA. Ears: The external ear and canal are non-tender and without swelling or discharge. Nose: Nasal mucosa is pink and moist. Septum midline. Nares patent bilaterally. Throat: Oral mucosa pink and moist with good dentition. Tongue midline. Neck: The neck supple without adenopathy. Trachea midline. No JVD. Cardiac: S1 and S2 regular rate and rhythm. No murmurs, gallops, or rubs auscultated. Respiratory: Chest wall symmetric, nontender and without deformity or trauma. Respirations even and unlabored. Lung sounds are diminished to auscultation in all lobes
[2021-12-19] MEDS: ALBUTEROL SULFATE NEB 2.5 MG/3 ML INH INHALATION ×3 (13:20→20:17)
[2021-12-19] MEDS: IPRATROPIUM BR 0.02% INH SOLN 0.5 MG/2.5 ML VIAL INHALATION ×3 (13:20→20:18)
[2021-12-19 17:02] LABS: Glucose Point of Care 110 mg/dl (65-105)
[2021-12-19 20:50] LABS: Glucose Point of Care 130 mg/dl (65-105)
[2021-12-20] VITALS (10 sets, daily range): BP systolic 95–124; BP diastolic 47–75; PULSE 76–86; RESP 14–18; TEMP 36.6–37.1; O2SAT 94–100
[2021-12-20] MEDS: ALBUTEROL SULFATE NEB 2.5 MG/3 ML INH INHALATION ×3 (08:30→19:15)
[2021-12-20] MEDS: IPRATROPIUM BR 0.02% INH SOLN 0.5 MG/2.5 ML VIAL INHALATION ×3 (08:30→19:15)
[2021-12-20 08:32] LABS: Glucose Point of Care 113 mg/dl (65-105)
[2021-12-20] MEDS: metFORMIN HCL 500 MG TABLET PO (09:00)
[2021-12-20] MEDS: PANTOPRAZOLE SODIUM IV 40 MG VIAL IV PUSH ×2 (09:00→20:27)
[2021-12-20] MEDS: EZETIMIBE 10 MG TABLET PO (09:00)
[2021-12-20] MEDS: ENOXAPARIN 40 MG/0.4 ML SYRINGE SUB-Q (09:00)
[2021-12-20] MEDS: SERTRALINE HCL 50 MG TABLET PO (09:00)
[2021-12-20] MEDS: TIMOLOL MALEATE 0.5% OP SOLN 5 ML BOTTLE 1 DROP EACH EYE (09:00)
[2021-12-20] MEDS: lisinopriL 10 MG TABLET PO (09:00)
[2021-12-20] MEDS: traMADol HCL (*CRX) 50 MG TABLET PO ×3 (09:03→17:23)
[2021-12-20] MEDS: DEXTROSE 5%/0.45% SOD CHL 1,000 ML 75 ML IV CONT (11:28)
[2021-12-20 12:29] LABS: Glucose Point of Care 118 mg/dl (65-105)
[2021-12-20 17:08] LABS: Glucose Point of Care 99 mg/dl (65-105)
--- NOTE | 2021-12-20 18:00 | PM.IMPN ---
Progress Note: A&P Assessment and Plan (1) Dysphagia: Code(s): R13.10 - Dysphagia, unspecified Status: Acute Assessment and Plan: Monitor vital signs, I and O's, check stool output, neuro status and patient is a fall risk Monitor serum electrolytes and CBC Consult gastroenterology for further evaluation, appreciate assistance and recommendation EGD to be performed 12/15/2021, patient has not had a prior colonoscopy. Patient really has had an EGD prior in the past with esophageal dilatation. Speech therapy evaluated the patient performed a modified barium swallow. The modified barium swallow did reveal laryngeal penetration without aspiration. Patient is able to eat regular foods. Continue to monitor the patient while she eats and to avoid of possible aspiration of vomit. Patient was persistently vomiting this morning after food consumption and reported that she feels the food is still the back of her throat. Gastroenterology managing GERD symptoms. Patient is on Protonix IVP Stable for discharge to rehab since yesterday, insurance denied rehab stay, unsafe to discharge home, will appeal tomorrow, peer to peer scheduled for 9:00 a.m. December 21, 2021 (2) Aspiration pneumonia: Code(s): J69.0 - Pneumonitis due to inhalation of food and vomit Status: Acute Assessment and Plan: Consult pulmonary and status post bronchoscopy. Per Pulmonary patient will continue on 8 days of clindamycin. For likely aspiration pneumonia (3) Weight loss: Code(s): R63.4 - Abnormal weight loss Status: Acute Assessment and Plan: Consult registered dietitian Albumin 2.8 (4) Hypokalemia: Code(s): E87.6 - Hypokalemia Status: Acute Assessment and Plan: Replace serum electrolytes (5) Hypomagnesemia: Code(s): E83.42 - Hypomagnesemia Status: Acute Assessment and Plan: Replaced serum electrolytes (6) Diabetes: Code(s): E11.9 - Type 2 diabetes mellitus without complications Status: Acute Assessment and Plan: Resume home meds (7) Abnormal finding on imaging: Code(s): R93.89 - Abnormal findings on diagnostic imaging of other specified body structures Status: Acute Assessment and Plan: Likely related to pneumonia and aspiration. See plan above Subjective Date/time seen: 12/20/21 18:00 Interval history: Resting comfortably, eager to leave for rehab. No overnight events noted. No chest pain or shortness of breath. No nausea, vomiting or diarrhea. No fevers or chills. Review of Systems Review of Systems: All systems reviewed & are unremarkable except as noted in HPI and below Exam Narrative: General: No acute distress, alert and oriented per baseline HEENT: Atraumatic, normocephalic, mucous membranes moist CV: Regular rate and rhythm, S1, S2 Lungs: Clear to auscultation bilaterally, no rales or crackles noted, no wheezes, good air entry Abdomen: Soft, nontender, nondistended Extremities: Normal to inspection Skin: No rashes noted, no lesions or wounds seen Psych: Euthymic, normal affect Objective Data Vital Signs Vital Signs: Vital Signs - 24 hr 12/19/21 19:13 12/19/21 20:19 12/19/21 20:20 Temperature 98 F Pulse Rate 87 87 Respiratory Rate 18 14 Blood Pressure 93/56 L Pulse Oximetry 98 96 Oxygen Delivery Room Air 12/19/21 20:31 12/19/21 20:50 12/20/21 04:26 Temperature 97.8 F Pulse Rate 90 80 Respiratory Rate 14 18 Blood Pressure 124/68 Pulse Oximetry 99 Oxygen Delivery Room Air 12/20/21 08:30 12/20/21 08:34 12/20/21 08:37 Temperature Pulse Rate 83 86 Respiratory Rate 16 14 Blood Pressure Pulse Oximetry 94 Oxygen Delivery Room Air 12/20/21 08:00 12/20/21 14:24 12/20/21 17:15 Temperature 98.8 F Pulse Rate 79 77 Respiratory Rate 16 16 Blood Pressure 95/75 L Pulse Oximetry 97 Oxygen Delivery Room Air 12/20/21 17:28 Tem
[2021-12-20 20:40] LABS: Glucose Point of Care 124 mg/dl (65-105)
[2021-12-21] MEDS: DEXTROSE 5%/0.45% SOD CHL 1,000 ML 75 ML IV CONT (00:59)
[2021-12-21 05:49] VITALS: BP 128/68; PULSE 81; RESP 16; TEMP 36.9; O2SAT 100
[2021-12-21] MEDS: ENOXAPARIN 40 MG/0.4 ML SYRINGE SUB-Q (08:21)
[2021-12-21] MEDS: EZETIMIBE 10 MG TABLET PO (08:21)
[2021-12-21] MEDS: lisinopriL 10 MG TABLET PO (08:21)
[2021-12-21] MEDS: SERTRALINE HCL 50 MG TABLET PO (08:21)
[2021-12-21] MEDS: TIMOLOL MALEATE 0.5% OP SOLN 5 ML BOTTLE 1 DROP EACH EYE (08:21)
[2021-12-21] MEDS: traMADol HCL (*CRX) 50 MG TABLET PO (08:21)
[2021-12-21] MEDS: PANTOPRAZOLE SODIUM IV 40 MG VIAL IV PUSH (08:21)
[2021-12-21] MEDS: metFORMIN HCL 500 MG TABLET PO (08:21)
[2021-12-21 08:24] LABS: Glucose Point of Care 120 mg/dl (65-105)
[2021-12-21 08:40] VITALS: PULSE 71; RESP 16; O2SAT 96
[2021-12-21] MEDS: ALBUTEROL SULFATE NEB 2.5 MG/3 ML INH INHALATION ×2 (08:43→11:33)
[2021-12-21] MEDS: IPRATROPIUM BR 0.02% INH SOLN 0.5 MG/2.5 ML VIAL INHALATION ×2 (08:43→11:33)
[2021-12-21 08:46] VITALS: PULSE 74; RESP 16
--- NOTE | 2021-12-21 10:08 | PC.NURSE ---
Spoke with son Ed via phone. Son to pick patient up for discharge at 2pm.
[2021-12-21 11:30] VITALS: PULSE 73; RESP 16
[2021-12-21 11:36] VITALS: PULSE 76; RESP 16
[2021-12-21 12:51] LABS: Glucose Point of Care 103 mg/dl (65-105)
[2021-12-21 13:36] LABS: EDCOVIDSCREEN Negative (Negative)
== END 2021-12-21 14:10 | DRG 178 ==
PROVIDERS: Family Medicine; Internal Medicine Gastroenterology; Internal Medicine Pulmonary Disease; Nurse Practitioner Family; Student in an Organized Health Care Education/Training Program; Admitting Provider Internal Medicine; PCP Family Medicine; Visit Provider Chiropractor
PROC: 0DJ08ZZ Inspection of Upper Intestinal Tract, Via Natural or Artificial Opening Endoscopic (ICD-10-PCS; CPT 43235; principal; 2021-12-15 14:30)
PROC: BB1DZZZ Fluoroscopy of Upper Airways (ICD-10-PCS; CPT 31624; principal; 2021-12-18 13:30)
DX: J69.0 Pneumonitis due to inhalation of food and vomit (principal); J98.11 Atelectasis; E46 Unspecified protein-calorie malnutrition; J18.9 Pneumonia, unspecified organism; R13.10 Dysphagia, unspecified; K22.4 Dyskinesia of esophagus; K22.2 Esophageal obstruction; K29.70 Gastritis, unspecified, without bleeding; Z20.822 Contact with and (suspected) exposure to COVID-19; E11.42 Type 2 diabetes mellitus with diabetic polyneuropathy; R63.4 Abnormal weight loss; E87.6 Hypokalemia; E83.42 Hypomagnesemia; K21.9 Gastro-esophageal reflux disease without esophagitis; I10 Essential (primary) hypertension; M19.90 Unspecified osteoarthritis, unspecified site; Z86.718 Personal history of other venous thrombosis and embolism; Z68.23 Body mass index [BMI] 23.0-23.9, adult
CPT/HCPCS: 36415; 71045; 71046; 71250; 80053; 81001; 82948; 83735; 84100; 85025; 85610; 85730; 85999; 86140; 87015; 87070; 87102; 87116; 87205; 87206; 87426; 88104; 88108; 88160; 88305; 88312; 88342; 92610; 92611; 94640; 94667; 94668; 96361; 96365; 96366; 96367; 96372; 96375; 96376; 97110; 97161; 97165; 97530; 97535; A9270; C9113; C9803; G0378; G0379; J0330; J0456; J0696; J1650; J2370; J2704; J3475; J3480; J7040; J7120